=== PATIENT | female | born 1960 | race American Indian/Alaskan Native ===

== ENCOUNTER 2016-10-16 16:11 | Emergency (ER) | payer OTHER ==
[2016-10-16] MEDS ORDERED: Albuterol 0.083% 2.5 MG/3 ML Neb Soln NEB ONE (16:52)
--- NOTE | 2016-10-16 16:59 | EDM.PDOC ---
{null, ED HPI GENERAL MEDICAL PROBLEM - General Chief Complaint: Respiratory Problem Stated Complaint: TIGHTNESS IN CHEST Time Seen by Provider: 10/16/16 16:54 Source of Information: Reports: Patient - History of Present Illness INITIAL COMMENTS - FREE TEXT/NARRATIVE: she comes today with complaints of cough congestion is for the past couple of weeks. She also has had some ear fullness and sinus congestion drainage pressure and headache. She does have a history of allergies which are consistent with all of her symptoms currently. Her cough is dry and hacking and nonproductive. She denies any chest pain palpitations lightheadedness dizziness or weakness. She denies a fever but does complain of chills intermittently. Has not any nausea vomiting abdominal pain hematuria dysuria or urinary frequency. she has tried nothing for her cough congestion or sinus congestion.she denies a sore throat. She denies wheezing. Chest Pain Score (Numeric/FACES): 4 - Related Data Allergies Allergy/AdvReac Type Severity Reaction Status Date / Time Sulfa (Sulfonamide Allergy Rash Verified 07/18/16 00:07 Antibiotics) Home Meds: Home Meds Aspirin [[place] Aspirin] 81 mg PO DAILY 07/29/13 [History] Atenolol 1 tab PO DAILY 07/29/13 [History] Digoxin 0.125 mg PO DAILY 07/29/13 [History] Furosemide [Lasix] 20 mg PO ASDIRECTED PRN 07/29/13 [History] Levothyroxine 150 mcg PO DAILY 07/29/13 [History] Lisinopril 5 mg PO DAILY 07/29/13 [History] Warfarin [Coumadin] 3.75 mg PO DAILY 07/29/13 [History] metFORMIN [metFORMIN XR] 1,000 mg PO BIDM 07/29/13 [History] glyBURIDE [Micronase] 5 mg PO DAILY 10/10/15 [History] Simvastatin [Zocor] 10 mg PO BEDTIME 07/18/16 [History] Past Medical History HEENT History: Reports: Impaired Vision 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 Cardiovascular History: Reports: High Cholesterol, Hypertension Musculoskeletal History: Reports: Other (See Below) Other Musculoskeletal History: pleuracy, chronic foot pain Neurological History: Reports: Neuropathy, Diabetic Endocrine/Metabolic History: Reports: Diabetes, Type II - Infectious Disease History Infectious Disease History: Reports: Chicken Pox, Measles - Past Surgical History Cardiovascular Surgical History: Reports: Pacer, Valve Replacement Social & Family History - Family History Family Medical History: Noncontributory - Tobacco Use Smoking Status *Q: Never Smoker Second Hand Smoke Exposure: No - Caffeine Use Caffeine Use: Reports: Soda, Tea - Alcohol Use Days Per Week of Alcohol Use: 0 - Recreational Drug Use Recreational Drug Use: No ED ROS GENERAL - Review of Systems Review Of Systems: ROS reveals no pertinent complaints other than HPI. ED EXAM, GENERAL - Physical Exam Exam: See Below Exam Limited By: No Limitations General Appearance: Alert, WD/WN, No Apparent Distress Ears: Normal External Exam, Normal Canal, Hearing Grossly Normal, Normal TMs Ear Exam: Bilateral Ear: TM normal Nose: No Blood, Nasal Swelling, Clear Rhinorrhea, Other (mildly erythematous turbinates which are swollen.). No: Nasal Tenderness, Nasal Deformity Throat/Mouth: Normal Lips, Normal Teeth, Normal Gums, Normal Oropharynx, Normal Voice, No Airway Compromise, Other (posterior pharynx with pink salmon colored vesicles and cobblestoning consistent with postnasal drip.) Head: Atraumatic, Normocephalic Neck: Normal Inspection, Supple, Non-Tender, Full Range of Motion Respiratory/Chest: No Respiratory Distress, Lungs Clear, Normal Breath Sounds, No Accessory Muscle Use Cardiovascular: Normal Peripheral Pulses, Regular Rate, Rhythm Peripheral Pulses: 2+: Brachial (L), Brachial (R), Posterior Tibial (L), Posterior Tibial (R), Dorsalis Pedis (L), Dorsalis Pedis (R) GI/Abdominal: Normal Bowel Sounds, Soft, Non-Tender, No Organomegaly, No Distention (Female) Exam: Deferred Rectal (Female) Exam: Deferred Back Exam: Normal Inspection. No: CVA Tenderness (L), CVA Tenderness (R) Extremities: Normal Inspection Neurological: Alert, Oriented, CN II-XII Intact Psychiatric: Normal Affect Skin Exam: Warm, Dry, Intact EKG INTERPRETATION EKG Date: 10/16/16 Time: 16:36 Rhythm: other (1st degree AV Block.) Rate (beats/min): 67 [place]: normal P-wave: present QRS: normal ST-T: normal QT: normal Comparison: no change Course - Vital Signs Last Recorded V/S: Last Vital Signs Temp 35.7 C 10/16/16 18:00 Pulse 73 10/16/16 18:00 Resp 14 10/16/16 18:00 BP 130/44 L 10/16/16 18:00 Pulse Ox 97 10/16/16 18:00 - Orders/Labs/Meds Orders: Active Orders 24 hr Category Date Time Status EKG 12 Lead [EKG Documentation Completion] [RC] URGENT Care 10/16/16 16:45 Active RT Aerosol Therapy [RC] ASDIRECTED Care 10/16/16 16:53 Active Labs: Laboratory Tests 10/16/16 10/16/16 10/16/16 Range/Units 17:04 17:04 17:04 WBC 8.4 (5.0-10.0) 10^3/uL RBC 4.12 L (4.2-5.4) 10^6/uL Hgb 11.0 L (12.0-16.0) g/dL Hct 34.6 L (37.0-47.0) % MCV 84.0 (80-100) fL MCH 26.7 L (27.0-34.0) pg MCHC 31.8 L (33.0-35.0) g/dL Plt Count 231 (150-450) 10^3/uL Neut % (Auto) 53.8 (42.2-75.2) % Lymph % (Auto) 34.5 (20.5-50.1) % [place] % (Auto) 7.6 (2-8) % Eos % (Auto) 3.7 H (1.0-3.0) % Baso % (Auto) 0.4 (0.0-1.0) % Sodium 130 L (135-145) mmol/L Potassium 3.8 (3.6-5.0) mmol/L Chloride 100 L (101-111) mmol/L Carbon Dioxide 24.0 (21.0-31.0) mmol/L Anion Gap 9.8 BUN 18 (7-18) mg/dL Creatinine 0.7 (0.6-1.3) mg/dL Est Cr Clr Drug Dosing 83.01 mL/min Estimated GFR (MDRD) > 60 BUN/Creatinine Ratio 25.71 Glucose 322 H (74-105) mg/dL Calcium 8.5 (8.4-10.2) mg/dl Total Bilirubin 0.3 (0.2-1.0) mg/dL AST 39 (10-42) IU/L ALT 35 (10-60) IU/L Alkaline Phosphatase 111 (42-121) IU/L Troponin I < 0.02 (0.00-0.02) ng/ml B-Natriuretic Peptide 45 (0-100) pg/ml Total Protein 7.9 (6.7-8.2) g/dl Albumin 3.6 (3.2-5.5) g/dl Globulin 4.3 Albumin/Globulin Ratio 0.84 Meds: Medications Discontinued Medications Generic Name Dose Route Start Last Admin Trade Name Freq PRN Reason Stop Dose Admin Albuterol 2.5 mg 10/16/16 16:52 10/16/16 16:57 Proventil Neb Soln NEB 10/16/16 16:53 2.5 mg ONETIME ONE Administration - Radiology Interpretation Free Text/Narrative:: chest x-ray per radiology no acute findings. - Re-Assessments/Exams Free Text/Narrative Re-Assessment/Exam: 10/16/16 17:55 the albuterol nebulizer completely resolves the patient's shortness of breath. I relayed the negative findings of the chest x-ray as well as her laboratory evaluation. Her EKG is unchanged from previous. I think that this is most likely a component of sinus congestion drainage and bronchitis. With her history of cardiac disease I need to ensure that this was not cardiac or pulmonary in nature. I believe that symptomatic management at this time for bronchitis as well as the sinus congestion is most appropriate. Discharge as below were explained to the patient she is comfortable with the plan and her questions were answered. Departure - Departure Time of Disposition: 17:57 Disposition: Home, Self-Care 01 Condition: good Clinical Impression: Bronchitis, Nasal sinus congestion - Discharge Information Instructions: Acute Bronchitis, [id number], Sinusitis, Adult, [id number] Forms: ED Department Discharge Additional Instructions: Tylenol and/or ibuprofen as needed for headache. Albuterol MDI inhaler 2 puffs every 4 hours as needed for cough congestion. Nasal saline rinses twice a day. Netti POT or other [id number] therapies. Flonase 2 sprays to each nares once a day for one week then one spray each nares once a day until symptoms resolve. May try honey as well for cough. Return to emergency Department if new or worsening symptoms. Recheck with your primary care provider in the next 4-6 days if not improving sooner if worse. - My Orders Last 24 Hours: My Active Orders 10/16/16 16:45 EKG 12 Lead [EKG Documentation Completion] [RC] URGENT 10/16/16 16:53 RT Aerosol Therapy [RC] ASDIRECTED - Assessment/Plan Last 24 Hours: My Active Orders 10/16/16 16:45 EKG 12 Lead [EKG Documentation Completion] [RC] URGENT 10/16/16 16:53 RT Aerosol Therapy [RC] ASDIRECTED Assessment:: Acute Bronchitis Nasal Congestion/Sinusitis. Plan: Tylenol and/or ibuprofen as needed for headache. Albuterol MDI inhaler 2 puffs every 4 hours as needed for cough congestion. Nasal saline rinses twice a day. Netti POT or other [id number] therapies. Flonase 2 sprays to each nares once a day for one week then one spray each nares once a day until symptoms resolve. May try honey as well for cough. Return to emergency Department if new or worsening symptoms. Recheck with your primary care provider in the next 4-6 days if not improving sooner if worse }
[2016-10-16 17:31] LABS: CHLORIDE,CL 100 mmol/L (101-111); SODIUM,NA 130 mmol/L (135-145)
[2016-10-16 18:01] VITALS: BP 130/44
--- NOTE | 2016-10-20 11:08 | EKG ---
{null, 10/16/2016 - ROSELINE ZAMORA - 12-lead EKG shows normal sinus rhythm with no significant ST elevation or ST depression noted on this 12-lead EKG. [facility] /[id number] }
== END 2016-10-16 18:09 | disposition home or self-care (01) ==
LOC: DL.ED 16:11
DX: J40 Bronchitis, not specified as acute or chronic (principal); E78.00 Pure hypercholesterolemia, unspecified; E11.9 Type 2 diabetes mellitus without complications; Z88.2 Allergy status to sulfonamides; Z79.82 Long term (current) use of aspirin; Z79.899 Other long term (current) drug therapy; Z79.01 Long term (current) use of anticoagulants
CPT/HCPCS: 36415; 71020; 80053; 83880; 84484; 85025; 93005; 94640; 99285; J7620

== ENCOUNTER 2016-12-27 12:59 | Emergency (ER) | payer OTHER ==
[2016-12-27 13:18] VITALS: BP 95/43
--- NOTE | 2016-12-27 13:36 | EDM.PDOC ---
ED HPI GENERAL MEDICAL PROBLEM - General Chief Complaint: Lower Extremity Injury/Pain Stated Complaint: LEFT LITTLE TOE INJURY Time Seen by Provider: 12/27/16 13:33 Source of Information: Reports: Patient History Limitations: Reports: No Limitations - History of Present Illness INITIAL COMMENTS - FREE TEXT/NARRATIVE: 56 yo [place] Female c/o left toe pain after stubbed on luggage wheel 3 days ago Onset Date: 12/25/16 Onset Time: 17:00 Duration: Day(s): Location: Reports: Lower Extremity, Left Quality: Reports: Ache Severity: Moderate Improves with: Reports: Rest Worsens with: Reports: Movement Associated Symptoms: Reports: No Other Symptoms Left Feet Pain Score (Numeric/FACES): 8 - Related Data Allergies Allergy/AdvReac Type Severity Reaction Status Date / Time Sulfa (Sulfonamide Allergy Rash Verified 12/27/16 13:20 Antibiotics) Home Meds: Home Meds Aspirin [[place] Aspirin] 81 mg PO DAILY 07/29/13 [History] Atenolol 0.5 tab PO DAILY 07/29/13 [History] Digoxin 0.125 mg PO DAILY 07/29/13 [History] Furosemide [Lasix] 20 mg PO ASDIRECTED PRN 07/29/13 [History] Levothyroxine 150 mcg PO DAILY 07/29/13 [History] Lisinopril 5 mg PO DAILY 07/29/13 [History] Warfarin [Coumadin] 4 mg PO DAILY 07/29/13 [History] metFORMIN [metFORMIN XR] 1,000 mg PO BIDM 07/29/13 [History] glyBURIDE [Micronase] 5 mg PO DAILY 10/10/15 [History] Past Medical History HEENT History: Reports: Impaired Vision 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, wears glasses Cardiovascular History: Reports: High Cholesterol, Hypertension Respiratory History: Reports: None Gastrointestinal History: Reports: None Genitourinary History: Reports: None [employer] History: Reports: None Musculoskeletal History: Reports: Other (See Below) Other Musculoskeletal History: pleuracy, chronic foot pain Neurological History: Reports: Neuropathy, Diabetic Psychiatric History: Reports: None Endocrine/Metabolic History: Reports: Diabetes, Type II Hematologic History: Reports: None Immunologic History: Reports: None Oncologic (Cancer) History: Reports: None Dermatologic History: Reports: None - Infectious Disease History Infectious Disease History: Reports: Chicken Pox, Measles - Past Surgical History Cardiovascular Surgical History: Reports: Pacer, Valve Replacement Social & Family History - Family History Family Medical History: Noncontributory - Tobacco Use Smoking Status *Q: Never Smoker Second Hand Smoke Exposure: No - Caffeine Use Caffeine Use: Reports: Tea - Alcohol Use Days Per Week of Alcohol Use: 0 - Recreational Drug Use Recreational Drug Use: No Review of Systems - Review of Systems Review Of Systems: See Below Constitutional: Reports: No Symptoms Eyes: Reports: No Symptoms Ears: Reports: No Symptoms Nose: Reports: No Symptoms Mouth/Throat: Reports: No Symptoms Respiratory: Reports: No Symptoms Cardiovascular: Reports: No Symptoms GI/Abdominal: Reports: No Symptoms Genitourinary: Reports: No Symptoms Musculoskeletal: Reports: Foot Pain (toes) Skin: Reports: Bruising (left foot) Neurological: Reports: No Symptoms Psychiatric: Reports: No Symptoms ED EXAM, GENERAL - Physical Exam Exam: See Below Exam Limited By: No Limitations General Appearance: Alert, WD/WN, No Apparent Distress Eye Exam: Bilateral Eye: PERRL Ears: Normal External Exam Nose: Normal Inspection Throat/Mouth: Normal Inspection Head: Atraumatic Neck: Normal Inspection Respiratory/Chest: No Respiratory Distress Cardiovascular: Normal Peripheral Pulses GI/Abdominal: Normal Bowel Sounds Extremities: Other (left toes w/ some bruising and tenderness) Neurological: Alert, Oriented, CN II-XII Intact Psychiatric: Normal Affect Skin Exam: Warm, Other (bruising to left toes) Course - Vital Signs Last Recorded V/S: Last Vital Signs Temp 36.1 C 12/27/16 13:15 Pulse 71 12/27/16 13:15 Resp 16 12/27/16 13:15 BP 95/43 L 12/27/16 13:15 Pulse Ox 98 12/27/16 13:15 Departure - Departure Time of Disposition: 14:30 Disposition: Home, Self-Care 01 Condition: Good Clinical Impression: Contusion of left foot including toes Qualifiers: Encounter type: initial encounter Qualified Code(s): S90.32XA - Contusion of left foot, initial encounter; S90.122A - Contusion of left lesser toe(s) without damage to nail, initial encounter - Discharge Information Forms: ED Department Discharge Additional Instructions: Rest Elevate and apply ice pack For pain take Tylenol Extra Strength 500mg Q4hrs as needed F/U w/ PCP
== END 2016-12-27 15:10 | disposition home or self-care (01) ==
LOC: DL.ED 12:59
DX: S90.32XA Contusion of left foot, initial encounter (principal); S90.122A Contusion of left lesser toe(s) without damage to nail, initial encounter; I10 Essential (primary) hypertension; E78.00 Pure hypercholesterolemia, unspecified; E11.40 Type 2 diabetes mellitus with diabetic neuropathy, unspecified; Z79.82 Long term (current) use of aspirin; Z79.01 Long term (current) use of anticoagulants; Z79.899 Other long term (current) drug therapy; Z88.2 Allergy status to sulfonamides; Z95.0 Presence of cardiac pacemaker; Z95.2 Presence of prosthetic heart valve; W22.8XXA Striking against or struck by other objects, initial encounter
CPT/HCPCS: 73620-LT; 99284

== ENCOUNTER 2017-04-19 16:23 | Emergency (ER) | payer OTHER ==
[2017-04-19 17:36] VITALS: BP 116/59
--- NOTE | 2017-04-19 17:46 | EDM.PDOC ---
ED HPI GENERAL MEDICAL PROBLEM - General Chief Complaint: Cardiovascular Problem Stated Complaint: BY AMBULANCE Time Seen by Provider: 04/19/17 17:35 Source of Information: Reports: Patient, EMS History Limitations: Reports: No Limitations - History of Present Illness INITIAL COMMENTS - FREE TEXT/NARRATIVE: This 56 yo female patient reports to the ED due to an episode of dizziness that occurred at about 1500 today. The patient reports she was sitting at her desk when she started to feel a little lightheaded. The patient reports she has also been feeling dizzy. The patient reports she has been dealing with a left ear infection and was started on Amoxicillin last Wednesday. The patient reports she has also had a sore throat over the past week. 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 The patient reports she had went up to the [facility] for a check-up, but there were no providers available to see her at that time. The [facility] called the ambulance to transport the patient to the ED. Onset: Today, Sudden Onset Date: 04/19/17 Onset Time: 15:00 Duration: Resolved Prior to Arrival Quality: Reports: Dull Severity: Mild Improves with: Reports: None Worsens with: Reports: None Associated Symptoms: Reports: Other - Related Data Allergies Allergy/AdvReac Type Severity Reaction Status Date / Time Sulfa (Sulfonamide Allergy Rash Verified 12/27/16 13:20 Antibiotics) Home Meds: Home Meds Aspirin [[place] Aspirin] 81 mg PO DAILY 07/29/13 [History] Atenolol 0.5 tab PO DAILY 07/29/13 [History] Digoxin 0.125 mg PO DAILY 07/29/13 [History] Furosemide [Lasix] 20 mg PO ASDIRECTED PRN 07/29/13 [History] Levothyroxine 150 mcg PO DAILY 07/29/13 [History] Lisinopril 5 mg PO DAILY 07/29/13 [History] Warfarin [Coumadin] 4 mg PO DAILY 07/29/13 [History] metFORMIN [metFORMIN XR] 1,000 mg PO BIDM 07/29/13 [History] glyBURIDE [Micronase] 5 mg PO DAILY 10/10/15 [History] Past Medical History HEENT History: Reports: Impaired Vision 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, wears glasses Cardiovascular History: Reports: High Cholesterol, Hypertension Respiratory History: Reports: None Gastrointestinal History: Reports: GERD Genitourinary History: Reports: None [employer] History: Reports: None Musculoskeletal History: Reports: Other (See Below) Other Musculoskeletal History: pleuracy, chronic foot pain Neurological History: Reports: Neuropathy, Diabetic Psychiatric History: Reports: None Endocrine/Metabolic History: Reports: Diabetes, Type II, Hypothyroidism Hematologic History: Reports: None Immunologic History: Reports: None Oncologic (Cancer) History: Reports: None Dermatologic History: Reports: None - Infectious Disease History Infectious Disease History: Reports: Chicken Pox, Measles - Past Surgical History Cardiovascular Surgical History: Reports: Pacer, Valve Replacement Social & Family History - Family History Family Medical History: Noncontributory - Tobacco Use Smoking Status *Q: Never Smoker Second Hand Smoke Exposure: No - Caffeine Use Caffeine Use: Reports: Coffee, Tea - Alcohol Use Days Per Week of Alcohol Use: 0 - Recreational Drug Use Recreational Drug Use: No ED ROS GENERAL - Review of Systems Review Of Systems: ROS reveals no pertinent complaints other than HPI. ED EXAM, GENERAL - Physical Exam Exam: See Below Exam Limited By: No Limitations General Appearance: Alert, WD/WN, Mild Distress Eye Exam: Bilateral Eye: EOMI, Normal Inspection, PERRL Ears: Normal External Exam, Normal Canal, Hearing Grossly Normal, Other (slight buldging of the right TM) Nose: Normal Inspection, Normal Mucosa, No Blood Throat/Mouth: Normal Inspection, Normal Lips, Normal Teeth, Normal Gums, Normal Oropharynx, Normal Voice, No Airway Compromise Head: Atraumatic, Normocephalic Neck: Normal Inspection, Supple, Non-Tender, Full Range of Motion Respiratory/Chest: No Respiratory Distress, Lungs Clear, Normal Breath Sounds, No Accessory Muscle Use, Chest Non-Tender Cardiovascular: Normal Peripheral Pulses, Regular Rate, Rhythm, No Edema, No Gallop, No JVD, No Murmur, No Rub GI/Abdominal: Normal Bowel Sounds, Soft, Non-Tender, No Organomegaly, No Distention, No Abnormal Bruit, No Mass (Female) Exam: Deferred Rectal (Female) Exam: Deferred Back Exam: Normal Inspection, Full Range of Motion, NT Extremities: Normal Inspection, Normal Range of Motion, Non-Tender, Normal Capillary Refill, No Pedal Edema Neurological: Alert, Oriented, CN II-XII Intact, Normal Cognition, Normal Gait, Normal Reflexes, No Motor/Sensory Deficits Psychiatric: Normal Affect, Normal Mood Skin Exam: Warm, Dry, Intact, Normal Color, No Rash Lymphatic: No Adenopathy Course - Vital Signs Last Recorded V/S: Last Vital Signs Temp 36.3 C 04/19/17 17:34 Pulse 62 04/19/17 17:34 Resp 16 04/19/17 17:34 BP 116/59 L 04/19/17 17:34 Pulse Ox 98 04/19/17 17:34 - Orders/Labs/Meds Orders: Active Orders 24 hr Category Date Time Status EKG Documentation Completion [RC] URGENT Care 04/19/17 17:12 Active Labs: Laboratory Tests 04/19/17 04/19/17 04/19/17 Range/Units 17:25 17:34 17:34 WBC 8.5 (5.0-10.0) 10^3/uL RBC 4.21 (4.2-5.4) 10^6/uL Hgb 11.1 L (12.0-16.0) g/dL Hct 34.8 L (37.0-47.0) % MCV 82.7 (80-100) fL MCH 26.4 L (27.0-34.0) pg MCHC 31.9 L (33.0-35.0) g/dL Plt Count 278 (150-450) 10^3/uL Neut % (Auto) 57.6 (42.2-75.2) % Lymph % (Auto) 32.2 (20.5-50.1) % [place] % (Auto) 7.5 (2-8) % Eos % (Auto) 2.1 (1.0-3.0) % Baso % (Auto) 0.6 (0.0-1.0) % Sodium 135 (135-145) mmol/L Potassium 3.9 (3.6-5.0) mmol/L Chloride 101 (101-111) mmol/L Carbon Dioxide 24.0 (21.0-31.0) mmol/L Anion Gap 13.9 BUN 16 (7-18) mg/dL Creatinine 0.7 (0.6-1.3) mg/dL Est Cr Clr Drug Dosing 83.01 mL/min Estimated GFR (MDRD) > 60 BUN/Creatinine Ratio 22.85 Glucose 285 H (74-105) mg/dL Calcium 8.7 (8.4-10.2) mg/dl Total Bilirubin 0.3 (0.2-1.0) mg/dL AST 46 H (10-42) IU/L ALT 37 (10-60) IU/L Alkaline Phosphatase 97 (42-121) IU/L Troponin I < 0.02 (0.00-0.02) ng/ml Total Protein 7.8 (6.7-8.2) g/dl Albumin 3.7 (3.2-5.5) g/dl Globulin 4.1 Albumin/Globulin Ratio 0.90 Urine Color Yellow (YELLOW) Urine Appearance Clear (CLEAR) Urine pH 6.5 (5.0-9.0) Ur Specific [place] 1.015 (1.005-1.030) Urine Protein Negative (NEGATIVE) Urine Glucose (UA) 500 H (NEGATIVE) Urine Ketones Negative (NEGATIVE) Urine Occult Blood Negative (NEGATIVE) Urine Nitrite Negative (NEGATIVE) Urine Bilirubin Negative (NEGATIVE) Urine Urobilinogen 1.0 (0.2-1.0) mg/dL Ur Leukocyte Esterase Negative (NEGATIVE) Urine RBC 0-5 /HPF Urine WBC Not seen (0-5/HPF) /HPF Ur Epithelial Cells Rare /HPF Urine Bacteria Rare (0-FEW/HPF) /HPF Departure - Departure Time of Disposition: 18:16 Disposition: Home, Self-Care 01 Condition: Fair Clinical Impression: Vertigo of central origin of left ear, Near syncope Instructions: Vertigo, [id number], Meniere Disease, Dizziness, Bjij-[id number], Near-Syncope, Mprh-ek-Juql Forms: ED Department Discharge Care Plan Goals: The patient was advised of the examination, lab and x-ray results during the visit. The patient was encouraged to continue to take the Amoxicillin as prescribed. The patient was given a script for Meclizine (25 mg) #10 to take 1 by mouth every 8 hours as needed for dizziness. If the patient has any additional symptoms or concerns, the patient should follow-up with her primary care facility or return to the emergency department. - My Orders Last 24 Hours: My Active Orders 04/19/17 17:12 EKG Documentation Completion [RC] URGENT - Assessment/Plan Last 24 Hours: My Active Orders 04/19/17 17:12 EKG Documentation Completion [RC] URGENT
[2017-04-19 18:07] LABS: CHLORIDE,CL 101 mmol/L (101-111); SODIUM,NA 135 mmol/L (135-145)
--- NOTE | 2017-04-21 10:21 | EKG ---
04/19/2017- ROSELINE ZAMORA - EKG per my reading shows atrial fibrillation with controlled ventricular rate. [facility] /[id number]
== END 2017-04-19 18:40 | disposition home or self-care (01) ==
LOC: DL.ED 16:23
DX: H81.42 Vertigo of central origin, left ear (principal); R55 Syncope and collapse; I10 Essential (primary) hypertension; E78.00 Pure hypercholesterolemia, unspecified; E11.40 Type 2 diabetes mellitus with diabetic neuropathy, unspecified; E03.9 Hypothyroidism, unspecified; Z79.82 Long term (current) use of aspirin; Z79.84 Long term (current) use of oral hypoglycemic drugs; Z79.01 Long term (current) use of anticoagulants; Z79.899 Other long term (current) drug therapy; Z88.2 Allergy status to sulfonamides
CPT/HCPCS: 36415; 71010; 80053; 81001; 84484; 85025; 93005; 99285

== ENCOUNTER 2017-07-17 11:15 | Emergency (ER) | payer OTHER ==
[2017-07-17 11:27] VITALS: BP 121/50
--- NOTE | 2017-07-17 12:35 | EDM.PDOC ---
ED HPI GENERAL MEDICAL PROBLEM - General Chief Complaint: ENT Problem Stated Complaint: [id number] SINUS INFECTION EAR INFECTION Time Seen by Provider: 07/17/17 12:29 Source of Information: Reports: Patient History Limitations: Reports: No Limitations - History of Present Illness INITIAL COMMENTS - FREE TEXT/NARRATIVE: Patient complains of progressively worsening cough and sinus pressure. Patient was advised by her clinic to be seen in the emergency room. Patient complains of fever or chills fatigue and harsh cough. She has right- sided sinus pressure and ear pain. Denies difficulty with swallowing. She has fatigue with exertion. No chest tightness. No extremity weakness. Onset: Gradual Duration: Day(s): Location: Reports: Face, Chest Quality: Reports: Dull Severity: Moderate Associated Symptoms: Reports: Cough, Fever/Chills, Malaise, Weakness. Denies: Nausea/Vomiting, Rash Face Pain Score (Numeric/FACES): 6 - Related Data Allergies Allergy/AdvReac Type Severity Reaction Status Date / Time Sulfa (Sulfonamide Allergy Rash Verified 07/17/17 11:27 Antibiotics) Home Meds: Home Meds Aspirin [[place] Aspirin] 81 mg PO DAILY 07/29/13 [History] Atenolol 0.5 tab PO DAILY 07/29/13 [History] Digoxin 0.125 mg PO DAILY 07/29/13 [History] Furosemide [Lasix] 20 mg PO ASDIRECTED PRN 07/29/13 [History] Levothyroxine 150 mcg PO DAILY 07/29/13 [History] Warfarin [Coumadin] 4 mg PO DAILY 07/29/13 [History] metFORMIN [metFORMIN XR] 1,000 mg PO BIDM 07/29/13 [History] glyBURIDE [Micronase] 5 mg PO BID 10/10/15 [History] Acetaminophen [Tylenol] 975 mg PO ASDIRECTED PRN 07/17/17 [History] Past Medical History HEENT History: Reports: Impaired Vision 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, wears glasses Cardiovascular History: Reports: High Cholesterol, Hypertension Respiratory History: Reports: None Gastrointestinal History: Reports: GERD Genitourinary History: Reports: None PROGRAM LEAD History: Reports: None Musculoskeletal History: Reports: Other (See Below) Other Musculoskeletal History: pleuracy, chronic foot pain Neurological History: Reports: Neuropathy, Diabetic Psychiatric History: Reports: None Endocrine/Metabolic History: Reports: Diabetes, Type II, Hypothyroidism Hematologic History: Reports: None Immunologic History: Reports: None Oncologic (Cancer) History: Reports: None Dermatologic History: Reports: None - Infectious Disease History Infectious Disease History: Reports: Chicken Pox, Measles - Past Surgical History Cardiovascular Surgical History: Reports: Pacer, Valve Replacement Social & Family History - Family History Family Medical History: Noncontributory - Tobacco Use Smoking Status *Q: Never Smoker Second Hand Smoke Exposure: No - Caffeine Use Caffeine Use: Reports: Tea - Alcohol Use Days Per Week of Alcohol Use: 0 - Recreational Drug Use Recreational Drug Use: No ED ROS ENT - Review of Systems Review Of Systems: See Below Constitutional: Reports: Fever, Chills, Malaise HEENT: Reports: Ear Pain, Sinus Problem Respiratory: Reports: Cough Cardiovascular: Reports: No Symptoms GI/Abdominal: Reports: No Symptoms : Reports: No Symptoms Musculoskeletal: Reports: No Symptoms Neurological: Reports: No Symptoms ED EXAM, ENT - Physical Exam Exam: See Below Exam Limited By: No Limitations General Appearance: Alert, Mild Distress Eye Exam: Bilateral Eye: PERRL Ears: Normal External Exam, Normal TMs Nose: Other (Tenderness to palpation over the right frontal and maxillary sinuses). No: Nasal Discharge, Nasal Tenderness Mouth/Throat: Normal Inspection, Normal Lips Head: Atraumatic, Normocephalic Neck: Normal Inspection, Supple, Non-Tender Respiratory/Chest: Rhonchi. No: Crackles, Wheezing Cardiovascular: Regular Rate, Rhythm Extremities: Normal Capillary Refill Neurological: Alert, Oriented, CN II-XII Intact Skin: Warm, Dry Course - Vital Signs Last Recorded V/S: Last Vital Signs Temp 96.8 F 07/17/17 11:21 Pulse 68 07/17/17 11:21 Resp 16 07/17/17 11:21 BP 121/50 L 07/17/17 11:21 Pulse Ox 98 07/17/17 11:21 - Orders/Labs/Meds Labs: Laboratory Tests 07/17/17 Range/Units 12:45 WBC 4.4 L (5.0-10.0) 10^3/uL RBC 3.96 L (4.2-5.4) 10^6/uL Hgb 10.4 L (12.0-16.0) g/dL Hct 32.7 L (37.0-47.0) % MCV 82.6 (80-100) fL MCH 26.3 L (27.0-34.0) pg MCHC 31.8 L (33.0-35.0) g/dL Plt Count 212 (150-450) 10^3/uL Neut % (Auto) 46.5 (42.2-75.2) % Lymph % (Auto) 31.3 (20.5-50.1) % [place] % (Auto) 13.8 H (2-8) % Eos % (Auto) 7.7 H (1.0-3.0) % Baso % (Auto) 0.7 (0.0-1.0) % Meds: Medications Discontinued Medications Generic Name Dose Route Start Last Admin Trade Name Freq PRN Reason Stop Dose Admin Amoxicillin/Clavulanate Potassium 1 tab 07/17/17 12:38 07/17/17 12:45 Augmentin 875 Mg/125 Mg PO 07/17/17 12:39 1 tab ONETIME ONE Administration Dexamethasone 4 mg 07/17/17 12:38 07/17/17 12:45 Dexamethasone IM 07/17/17 12:39 4 mg ONETIME ONE Administration - Re-Assessments/Exams Free Text/Narrative Re-Assessment/Exam: Chest x-ray is clear. Unable to determine influenza since hospital is out of influenza kits 07/17/17 13:26 Departure - Departure Time of Disposition: 13:27 Disposition: Home, Self-Care 01 Condition: Good Clinical Impression: Sinobronchitis - Discharge Information Instructions: Sinusitis, Adult, [id number], Acute Bronchitis, Adult, Easy-to- Read Forms: ED Department Discharge Additional Instructions: Take medications as directed. Follow-up with regular provider next week. No work until Wednesday. Call or return if any problems questions or concerns. May use honey and lemon juice for cough syrup. Can use [id number] medications such as Tylenol.
[2017-07-17] MEDS ORDERED: Amoxicillin/Clavulanate K 875-125 MG Tab PO ONE (12:38)
[2017-07-17] MEDS ORDERED: Dexamethasone 4 MG/ML SDV IM ONE (12:38)
--- NOTE | 2017-07-17 13:11 | CR ---
Clinical history: 57-year-old female with cough. Interpretation: Chronic mild cardiomegaly this patient with sternotomy wires, cardiac valve prosthesis and cardiac pa cemaker (leads intact). Chronic shaggy bronchitic pattern unchanged except for technique since AP film of 19 April 2017. No new signs of alveolar edema, dependent pleural effusion, lung mass, focal lobar pneumonia or atele ctasis/collapse. No pneumothorax or free subdiaphragmatic air. CONCLUSION: Evidence of heart surgery. No acute new cardiopulmonary abnormality since March 7.
== END 2017-07-17 13:48 | disposition home or self-care (01) ==
LOC: DL.ED 11:15
DX: J40 Bronchitis, not specified as acute or chronic (principal); I10 Essential (primary) hypertension; E78.00 Pure hypercholesterolemia, unspecified; E11.40 Type 2 diabetes mellitus with diabetic neuropathy, unspecified; E03.9 Hypothyroidism, unspecified; Z95.2 Presence of prosthetic heart valve; Z79.82 Long term (current) use of aspirin; Z79.01 Long term (current) use of anticoagulants; Z79.84 Long term (current) use of oral hypoglycemic drugs; Z79.899 Other long term (current) drug therapy; Z88.2 Allergy status to sulfonamides
CPT/HCPCS: 36415; 71046; 85025; 96372; 99284; A9270; J1100

== ENCOUNTER 2018-06-27 15:52 | Emergency (ER) | payer BC, OTHER ==
[2018-06-27 15:52] VITALS: BP 120/61
--- NOTE | 2018-06-27 15:55 | EDM.PDOC ---
ED HPI GENERAL MEDICAL PROBLEM - General Stated Complaint: AMBULANCE Time Seen by Provider: 06/27/18 15:46 Source of Information: Reports: Patient, EMS, Provider History Limitations: Reports: No Limitations - History of Present Illness INITIAL COMMENTS - FREE TEXT/NARRATIVE: This 58 yo female patient was brought to the ED by TAYLOR from the [facility] due to a 2 day history of intermittent chest pain and shortness of breath. This patient has a pacemaker in place and an artificial mitral valve. The patient did have her pacemaker replaced this past fall (according to Dr. Daniels). The patient was given a dose of aspirin while in the [facility] and had an IV in place upon arrival in the ED. The patient reports her chest pain has been mostly on the left side of her chest with some pain in the middle of her chest. The patient reports she had her pacemaker replaced in February with only 1 follow-up in the end of February. The patient reports she was supposed to have her pacemaker checked with something on her phone this month, but her grandchildren were playing with her phone and she can not find the thing they put on her phone. The patient reports she was going to call her monument carver regarding the check soon. The patient reports she also saw a doctor in [place] for pain in her lower back last week, but the provider did not get a copy of the patient's MRI. The provider reported to the patient that he could not do much without the MRI results. The patient reports she has been having low back pain from that with pain radiating around from her back into her stomach. 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 - Related Data Allergies Allergy/AdvReac Type Severity Reaction Status Date / Time Sulfa (Sulfonamide Allergy Rash Verified 07/17/17 11:27 Antibiotics) Home Meds: Home Meds Aspirin [[place] Aspirin] 81 mg PO DAILY 07/29/13 [History] Atenolol 0.5 tab PO DAILY 07/29/13 [History] Digoxin 0.125 mg PO DAILY 07/29/13 [History] Levothyroxine 150 mcg PO DAILY 07/29/13 [History] Warfarin [Coumadin] 4 mg PO DAILY 07/29/13 [History] metFORMIN [metFORMIN XR] 1,000 mg PO BIDM 07/29/13 [History] glyBURIDE [Micronase] 5 mg PO BID 10/10/15 [History] Acetaminophen [Tylenol] 975 mg PO ASDIRECTED PRN 07/17/17 [History] Past Medical History HEENT History: Reports: Impaired Vision 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, wears glasses Cardiovascular History: Reports: Heart Valve Replacement (aortic), High Cholesterol, Hypertension, Pacemaker Respiratory History: Reports: Sleep Apnea (CPAP) Gastrointestinal History: Reports: GERD Genitourinary History: Reports: None PLATER 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 BOARD PANELS History: Reports: None Musculoskeletal History: Reports: Other (See Below) Other Musculoskeletal History: chronic foot pain Neurological History: Reports: Neuropathy, Diabetic Psychiatric History: Reports: None Endocrine/Metabolic History: Reports: Diabetes, Type II, Hypothyroidism, Obesity /BMI 30+ Hematologic History: Reports: None Immunologic History: Reports: None Oncologic (Cancer) History: Reports: None Dermatologic History: Reports: None - Infectious Disease History Infectious Disease History: Reports: Chicken Pox, Measles - Past Surgical History Cardiovascular Surgical History: Reports: Pacer, Valve Replacement Social & Family History - Family History Family Medical History: Noncontributory - Caffeine Use Caffeine Use: Reports: Tea - Living Situation & Occupation Living situation: Reports: with Family Occupation: Employed ED ROS GENERAL - Review of Systems Review Of Systems: ROS reveals no pertinent complaints other than HPI. ED EXAM, GENERAL - Physical Exam Exam: See Below Exam Limited By: No Limitations General Appearance: Alert, WD/WN, No Apparent Distress Eye Exam: Bilateral Eye: EOMI, Normal Inspection, PERRL Ears: Normal External Exam, Normal Canal, Hearing Grossly Normal, Normal TMs Nose: Normal Inspection, Normal Mucosa, No Blood Throat/Mouth: Normal Inspection, Normal Lips, Normal Teeth, Normal Gums, Normal Oropharynx, Normal Voice, No Airway Compromise Head: Atraumatic, Normocephalic Neck: Normal Inspection, Supple, Non-Tender, Full Range of Motion Respiratory/Chest: No Respiratory Distress, Lungs Clear, Normal Breath Sounds, No Accessory Muscle Use, Chest Non-Tender Cardiovascular: Normal Peripheral Pulses, Regular Rate, Rhythm, No Gallop, No JVD, No Murmur, No Rub, Other (Mechanical click) GI/Abdominal: Normal Bowel Sounds, Soft, Non-Tender, No Organomegaly, No Distention, No Abnormal Bruit, No Mass (Female) Exam: Deferred Rectal (Female) Exam: Deferred Back Exam: Normal Inspection, Full Range of Motion, NT Extremities: Normal Inspection, Normal Range of Motion, Non-Tender, Normal Capillary Refill, Pedal Edema Neurological: Alert, Oriented, CN II-XII Intact, Normal Cognition, Normal Gait, Normal Reflexes, No Motor/Sensory Deficits Psychiatric: Normal Affect, Normal Mood Skin Exam: Warm, Dry, Intact, Normal Color, No Rash Lymphatic: No Adenopathy Course - Vital Signs Last Recorded V/S: Last Vital Signs Temp 36.9 C 06/27/18 15:47 Pulse 65 06/27/18 15:47 Resp 18 06/27/18 15:47 BP 120/61 06/27/18 15:47 Pulse Ox 98 06/27/18 15:47 - Orders/Labs/Meds Orders: Active Orders 24 hr Category Date Time Status EKG Documentation Completion [RC] URGENT Care 06/27/18 15:45 Active Chest 1V Frontal [CR] Urgent Exams 06/27/18 15:45 Taken Labs: Laboratory Tests 06/27/18 06/27/18 06/27/18 Range/Units 15:56 15:56 15:56 WBC 6.6 (5.0-10.0) 10^3/uL RBC 3.81 L (4.2-5.4) 10^6/uL Hgb 10.4 L (12.0-16.0) g/dL Hct 33.1 L (37.0-47.0) % MCV 86.9 (80-100) fL MCH 27.3 (27.0-34.0) pg MCHC 31.4 L (33.0-35.0) g/dL Plt Count 205 (150-450) 10^3/uL Neut % (Auto) 60.5 (42.2-75.2) % Lymph % (Auto) 30.7 (20.5-50.1) % [place] % (Auto) 5.8 (2-8) % Eos % (Auto) 2.7 (1.0-3.0) % Baso % (Auto) 0.3 (0.0-1.0) % PT 28.4 H (9.0-12.0) SEC INR 2.9 H (0.9-1.2) D-Dimer, Quantitative < 100 (0-400) ng/mL Sodium (135-145) mmol/L Potassium (3.6-5.0) mmol/L Chloride (101-111) mmol/L Carbon Dioxide (21.0-31.0) mmol/L Anion Gap BUN (7-18) mg/dL Creatinine (0.6-1.3) mg/dL Est Cr Clr Drug Dosing mL/min Estimated GFR (MDRD) BUN/Creatinine Ratio Glucose (74-105) mg/dL Calcium (8.4-10.2) mg/dl Total Bilirubin (0.2-1.0) mg/dL AST (10-42) IU/L ALT (10-60) IU/L Alkaline Phosphatase (42-121) IU/L Troponin I (0.00-0.02) ng/ml B-Natriuretic Peptide 41 (0-100) pg/ml Total Protein (6.7-8.2) g/dl Albumin (3.2-5.5) g/dl Globulin Albumin/Globulin Ratio 06/27/ Range/Units 15:56 WBC (5.0-10.0) 10^3/uL RBC (4.2-5.4) 10^6/uL Hgb (12.0-16.0) g/dL Hct (37.0-47.0) % MCV (80-100) fL MCH (27.0-34.0) pg MCHC (33.0-35.0) g/dL Plt Count (150-450) 10^3/uL Neut % (Auto) (42.2-75.2) % Lymph % (Auto) (20.5-50.1) % [place] % (Auto) (2-8) % Eos % (Auto) (1.0-3.0) % Baso % (Auto) (0.0-1.0) % PT (9.0-12.0) SEC INR (0.9-1.2) D-Dimer, Quantitative (0-400) ng/mL Sodium 137 (135-145) mmol/L Potassium 3.9 (3.6-5.0) mmol/L Chloride 102 (101-111) mmol/L Carbon Dioxide 26.0 (21.0-31.0) mmol/L Anion Gap 12.9 BUN 15 (7-18) mg/dL Creatinine 0.6 (0.6-1.3) mg/dL Est Cr Clr Drug Dosing 98.18 mL/min Estimated GFR (MDRD) > 60 BUN/Creatinine Ratio 25.00 Glucose 169 H (74-105) mg/dL Calcium 8.8 (8.4-10.2) mg/dl Total Bilirubin 0.5 (0.2-1.0) mg/dL AST 31 (10-42) IU/L ALT 21 (10-60) IU/L Alkaline Phosphatase 93 (42-121) IU/L Troponin I < 0.02 (0.00-0.02) ng/ml B-Natriuretic Peptide (0-100) pg/ml Total Protein 8.0 (6.7-8.2) g/dl Albumin 3.5 (3.2-5.5) g/dl Globulin 4.5 Albumin/Globulin Ratio 0.78 Departure - Departure Time of Disposition: 16:32 Disposition: Home, Self-Care 01 Condition: Fair Clinical Impression: Nonspecific chest pain Instructions: Nonspecific Chest Pain, [id number] Forms: ED Department Discharge Care Plan Goals: The patient was advised of the examination, lab, EKG and x-ray results during the visit. The patient was encouraged to follow-up with her monument carver for continued evaluation and further management. If the patient has any additional symptoms or concerns, the patient should either return to the emergency department or visit her primary care facility. - My Orders Last 24 Hours: My Active Orders 06/27/18 15:45 EKG Documentation Completion [RC] URGENT Chest 1V Frontal [CR] Urgent - Assessment/Plan Last 24 Hours: My Active Orders 06/27/18 15:45 EKG Documentation Completion [RC] URGENT Chest 1V Frontal [CR] Urgent
[2018-06-27 16:23] LABS: ANION GAP 12.9; CHLORIDE,CL 102 mmol/L (101-111); SODIUM,NA 137 mmol/L (135-145)
== END 2018-06-27 17:08 | disposition home or self-care (01) ==
LOC: DL.ED 15:52
DX: R07.9 Chest pain, unspecified (principal); E66.9 Obesity, unspecified; E11.40 Type 2 diabetes mellitus with diabetic neuropathy, unspecified; Z88.2 Allergy status to sulfonamides; Z79.82 Long term (current) use of aspirin; Z79.899 Other long term (current) drug therapy
CPT/HCPCS: 36415; 71045; 80053; 83880; 84484; 85025; 85379; 85610; 93005; 99285

== ENCOUNTER 2018-10-14 23:17 | Emergency (ER) | payer BC, OTHER ==
[2018-10-14 23:25] VITALS: BP 110/86
--- NOTE | 2018-10-14 23:42 | EDM.PDOC ---
ED HPI GENERAL MEDICAL PROBLEM - General Chief Complaint: Chest Pain Stated Complaint: CHEST HURTS [id number] Time Seen by Provider: 10/14/18 23:40 Source of Information: Reports: Patient History Limitations: Reports: No Limitations - History of Present Illness INITIAL COMMENTS - FREE TEXT/NARRATIVE: c/o CP on off few days, not getting better has appt with cardio, tonight felt worse after returning from [place]. presently feeling ok but tired. Left Anterior Chest Pain Score (Numeric/FACES): 2 - Related Data Allergies Allergy/AdvReac Type Severity Reaction Status Date / Time Sulfa (Sulfonamide Allergy Rash Verified 10/14/18 23:25 Antibiotics) Home Meds: Home Meds Aspirin [[place] Aspirin] 81 mg PO DAILY 07/29/13 [History] Atenolol 0.5 tab PO DAILY 07/29/13 [History] Digoxin 0.125 mg PO DAILY 07/29/13 [History] Levothyroxine 150 mcg PO DAILY 07/29/13 [History] Warfarin [Coumadin] 4 mg PO DAILY 07/29/13 [History] metFORMIN [metFORMIN XR] 1,000 mg PO BIDM 07/29/13 [History] glyBURIDE [Micronase] 5 mg PO BID 10/10/15 [History] Acetaminophen [Tylenol] 975 mg PO ASDIRECTED PRN 07/17/17 [History] Past Medical History HEENT History: Reports: Impaired Vision 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, wears glasses Cardiovascular History: Reports: Heart Valve Replacement, High Cholesterol, Hypertension, Pacemaker Respiratory History: Reports: Sleep Apnea Gastrointestinal History: Reports: GERD Genitourinary History: Reports: None KENNEL HAND History: Reports: None Musculoskeletal History: Reports: Other (See Below) Other Musculoskeletal History: chronic foot pain Neurological History: Reports: Neuropathy, Diabetic Psychiatric History: Reports: None Endocrine/Metabolic History: Reports: Diabetes, Type II, Hypothyroidism, Obesity /BMI 30+ Hematologic History: Reports: None Immunologic History: Reports: None Oncologic (Cancer) History: Reports: None Dermatologic History: Reports: None - Infectious Disease History Infectious Disease History: Reports: Chicken Pox, Measles - Past Surgical History Cardiovascular Surgical History: Reports: Pacer, Valve Replacement Social & Family History - Family History Family Medical History: Noncontributory - Tobacco Use Smoking Status *Q: Unknown Ever Smoked - Caffeine Use Caffeine Use: Reports: None - Recreational Drug Use Recreational Drug Use: No - Living Situation & Occupation Living situation: Reports: with Family Occupation: Employed ED ROS GENERAL - Review of Systems Review Of Systems: ROS reveals no pertinent complaints other than HPI. ED EXAM, GENERAL - Physical Exam Exam: See Below Exam Limited By: No Limitations General Appearance: Alert, WD/WN, Mild Distress, Other (discomfort) Ears: Hearing Grossly Normal Throat/Mouth: Normal Voice, No Airway Compromise Head: Atraumatic Neck: Supple, Non-Tender Respiratory/Chest: No Respiratory Distress Cardiovascular: Regular Rate, Rhythm GI/Abdominal: Soft, Non-Tender Neurological: Alert, Oriented, Normal Cognition, Normal Gait, No Motor/Sensory Deficits Psychiatric: Flat Affect Skin Exam: Warm, Dry, Normal Color Lymphatic: No Adenopathy Course - Vital Signs Last Recorded V/S: Last Vital Signs Temp 36.3 C 10/14/18 23:23 Pulse 78 10/14/18 23:23 Resp 18 10/14/18 23:23 BP 110/86 10/14/18 23:23 Pulse Ox 98 10/14/18 23:23 - Orders/Labs/Meds Orders: Active Orders 24 hr Category Date Time Status EKG 12 Lead [EKG Documentation Completion] [RC] URGENT Care 10/14/18 23:31 Active DIGOXIN [CHEM] Stat Lab 10/14/18 23:35 Received LORazepam [Ativan] Med 10/15/18 00:19 Once 1 mg PO ONETIME ONE Labs: Laboratory Tests 10/14/18 10/14/18 10/14/18 Range/Units 23:35 23:35 23:35 WBC 7.8 (5.0-10.0) 10^3/uL RBC 3.86 L (4.2-5.4) 10^6/uL Hgb 10.4 L (12.0-16.0) g/dL Hct 33.4 L (37.0-47.0) % MCV 86.5 (80-100) fL MCH 26.9 L (27.0-34.0) pg MCHC 31.1 L (33.0-35.0) g/dL Plt Count 198 (150-450) 10^3/uL Neut % (Auto) 59.8 (42.2-75.2) % Lymph % (Auto) 30.5 (20.5-50.1) % [place] % (Auto) 7.2 (2-8) % Eos % (Auto) 2.2 (1.0-3.0) % Baso % (Auto) 0.3 (0.0-1.0) % PT 28.7 H (9.0-12.0) SEC INR 3.0 H (0.9-1.2) D-Dimer, Quantitative < 100 Sodium 136 (135-145) mmol/L Potassium 3.7 (3.6-5.0) mmol/L Chloride 104 (101-111) mmol/L Carbon Dioxide 24.0 (21.0-31.0) mmol/L Anion Gap 11.7 BUN 13 (7-18) mg/dL Creatinine 0.5 L (0.6-1.3) mg/dL Est Cr Clr Drug Dosing 117.81 mL/min Estimated GFR (MDRD) > 60 BUN/Creatinine Ratio 26.00 Glucose 183 H (74-105) mg/dL Calcium 8.6 (8.4-10.2) mg/dl Total Bilirubin 0.7 (0.2-1.0) mg/dL AST 27 (10-42) IU/L ALT 17 (10-60) IU/L Alkaline Phosphatase 88 (42-121) IU/L Troponin I < 0.02 (0.00-0.02) ng/ml B-Natriuretic Peptide 85 (0-100) pg/ml Total Protein 8.1 (6.7-8.2) g/dl Albumin 3.6 (3.2-5.5) g/dl Globulin 4.5 Albumin/Globulin Ratio 0.80 - Re-Assessments/Exams Free Text/Narrative Re-Assessment/Exam: 10/15/18 00:19 results discussed with pt who is feeling ok presently. no pain. take melatonin but takes long time to work. Departure - Departure Time of Disposition: 00:20 Disposition: Home, Self-Care 01 Condition: Fair Clinical Impression: Atypical chest pain Forms: ED Department Discharge Additional Instructions: 1) rest and avoid bending lifting straining 2) follow up at clinic 3) recheck if there is any change or concern - My Orders Last 24 Hours: My Active Orders 10/14/18 23:31 EKG 12 Lead [EKG Documentation Completion] [RC] URGENT 10/14/18 23:35 DIGOXIN [CHEM] Stat 10/15/18 00:19 LORazepam [Ativan] 1 mg PO ONETIME ONE - Assessment/Plan Last 24 Hours: My Active Orders 10/14/18 23:31 EKG 12 Lead [EKG Documentation Completion] [RC] URGENT 10/14/18 23:35 DIGOXIN [CHEM] Stat 10/15/18 00:19 LORazepam [Ativan] 1 mg PO ONETIME ONE
[2018-10-15 00:01] LABS: ANION GAP 11.7; CHLORIDE,CL 104 mmol/L (101-111); SODIUM,NA 136 mmol/L (135-145)
[2018-10-15] MEDS ORDERED: LORazepam 1 MG Tab PO ONE (00:19)
== END 2018-10-15 00:29 | disposition home or self-care (01) ==
LOC: DL.ED 23:17
DX: R07.89 Other chest pain (principal); E78.00 Pure hypercholesterolemia, unspecified; I10 Essential (primary) hypertension; K21.9 Gastro-esophageal reflux disease without esophagitis; E03.9 Hypothyroidism, unspecified; E11.40 Type 2 diabetes mellitus with diabetic neuropathy, unspecified; Z88.2 Allergy status to sulfonamides; Z79.899 Other long term (current) drug therapy; Z79.01 Long term (current) use of anticoagulants; Z79.84 Long term (current) use of oral hypoglycemic drugs; Z95.4 Presence of other heart-valve replacement
CPT/HCPCS: 36415; 80053; 80162; 83880; 84484; 85025; 85379; 85610; 93005; 99285; A9270

== ENCOUNTER 2019-06-29 05:56 | Day surgery (SDC) | payer BC, OTHER ==
[~2019-06-29 05:56] MED LIST: Dextrose 5%-0.45% NaCl 1,000 ML IV SCH; Midazolam 1 MG/ML 2 ML SDV ONE; Sodium Chloride 0.9% 10 ML Syringe FLUSH PRN
[2019-06-29] MEDS ORDERED: Midazolam 1 MG/ML 2 ML SDV IV ONE ×3 (05:57→07:04)
[2019-06-29] MEDS ORDERED: fentaNYL 100 MCG/2 ML SDV ONE (05:57)
[2019-06-29] MEDS ORDERED: fentaNYL 100 MCG/2 ML SDV IV ONE ×3 (05:57→07:03)
--- NOTE | 2019-06-29 07:54 | OR ---
DATE: 06/29/2019 PROCEDURES: Esophagogastroduodenoscopy and multiple pinch biopsies. INSTRUMENT USED: [id number]-[id number] Olympus video panendoscope. PREMEDICATIONS: No oral or topical anesthesia used. Fentanyl 100 mcg intravenous, Versed 2 mg intravenous, nasal O2 cannula. 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 INDICATION: The patient with multiple abdominal symptoms, persistent in nature, and also iron deficiency anemia. Esophagogastroduodenoscopy is performed for detection of any active erosive lesions, Herrera esophagus and/or malignancy also under consideration, H pylori status to be determined, small bowel biopsies to be obtained for celiac disease if indicated, endoscopic hemostasis therapy if needed. PROCEDURE IN DETAIL: The scope was passed with ease. Adequate visualization of the esophagus was made from proximal to distal areas. No upper esophageal lesions identified. No distal esophageal stricture. No uphill or downhill esophageal varices. No Serena-Villarreal tear. No evidence of erosive esophagitis by [place] criteria. No esophageal polyp or tumor mass identified. Z-line was seen at around 40 cm distal to the oral verge, configuration consistent with grade 1 by ZAP classification. No proximal gastric varices noted. Gastric fundus examination by retroflexion showed no polypoid lesions. No gastric ulcer, malignant mass, or vascular ectasia identified. Patchy erythema of the gastric antral mucosa was noted. Duodenal bulb showed no ulcer. Visualized 2nd part of the duodenum was unremarkable. Multiple pinch biopsies, 4 in number, were taken from different areas of the second part of duodenum and tissues were also obtained from the duodenal bulb at 9 and 12 o'clock positions and sent for any histopathologic evidence of celiac disease. Multiple pinch biopsies were also taken from the gastric antrum and proximal body and sent for PyloriTek test for H pylori and histopathology. No bleeding was noted from any of the visualized areas at the completion of examination. Photographs were taken of the duodenal bulb, gastric antrum, fundus, and distal esophagus. IMPRESSION: Normal study. The patient tolerated the procedure well. [facility] /[id number]
--- NOTE | 2019-06-29 08:25 | LETTER ---
06/29/2019 Rashel Garcia MD [facility] [address] [place] [address] RE: SERA, GLORIATuan RUBIO : [address] Garcia: Ms. Gloria Wills had esophagogastroduodenoscopy done this morning and she tolerated the procedure well. I herewith send a copy of the endoscopy note and photographs for your review. Thank you. Sincerely, [facility] /[id number]
[2019-06-29 13:52] VITALS: BP 103/68; PULSE 60
== END 2019-06-29 09:30 | disposition home or self-care (01) ==
LOC: DL.ENDO 05:56
PROVIDERS: ATTEND Internal Medicine Gastroenterology
DX: K29.50 Unspecified chronic gastritis without bleeding (principal); D50.9 Iron deficiency anemia, unspecified; K21.9 Gastro-esophageal reflux disease without esophagitis; E03.9 Hypothyroidism, unspecified; E11.9 Type 2 diabetes mellitus without complications; E78.5 Hyperlipidemia, unspecified; M19.90 Unspecified osteoarthritis, unspecified site; Z79.82 Long term (current) use of aspirin; Z91.040 Latex allergy status; Z88.8 Allergy status to other drugs, medicaments and biological substances; Z88.2 Allergy status to sulfonamides
CPT/HCPCS: 43239; 87077; J2250; J3010; J7042

== ENCOUNTER 2019-06-30 07:04 | Day surgery (SDC) | payer BC, OTHER ==
[~2019-06-30 07:04] MED LIST changes: -Dextrose 5%-0.45% NaCl 1,000 ML IV SCH; -Sodium Chloride 0.9% 10 ML Syringe FLUSH PRN; +fentaNYL 100 MCG/2 ML SDV ONE
[2019-06-30] MEDS ORDERED: Midazolam 1 MG/ML 2 ML SDV IV ONE ×7 (07:05→07:54)
[2019-06-30] MEDS ORDERED: fentaNYL 100 MCG/2 ML SDV IV ONE ×3 (07:05→07:47)
[2019-06-30] MEDS ORDERED: Dextrose 5%-0.45% NaCl 1,000 ML IV SCH (07:15)
--- NOTE | 2019-06-30 10:40 | OR ---
DATE: 06/30/2019 PROCEDURE: Total colonoscopy. INSTRUMENT USED: PCF-H190DL Olympus video colonoscope. PREMEDICATIONS: Fentanyl 100 mcg intravenous, Versed 4 mg intravenous. Nasal O2 cannula. The procedure was done under pulse oximetry, BP recording, and body engineer. INDICATION: The patient with rectal bleeding and iron-deficiency anemia. Colonoscopic examination is done for detection of any polypoid lesions and removal, endoscopic hemostasis therapy if indicated. DESCRIPTION OF PROCEDURE: Initial rectal exam was unremarkable. Rigid anoscopy showed small internal hemorrhoids without bleeding from them. Few scattered diverticula were noted. The scope was passed with ease up to the ileocecal area. Photographs were taken of the normal-appearing cecum identified by landmarks of appendiceal orifice and double-bulged ileocecal folds. The bowel preparation was found to be adequate, [place] scale 2 in right and transverse colon, 3 in descending colon, total score of 7. No stricture. No vascular ectasia. No large isolated ulcerations seen. No evidence of diffuse inflammatory bowel disease in the form of friability, contact bleeding, or ulcerations. No polyp or tumor mass identified. Probing the proximal sides of folds and flexures using adequate distention and clearing up the stool material, withdrawal of the scope was made, cecum to rectum time over 6 minutes. No bleeding was noted from any of the visualized areas at the completion of examination. IMPRESSION: 1. Internal hemorrhoids. 2. Diverticulosis. The patient tolerated the procedure well. [facility] /[id number]
--- NOTE | 2019-06-30 10:51 | LETTER ---
06/30/2019 Rashel Garcia MD [facility] [address] [place] [address] RE: SERAGLORIA BUSTAMANTE JOANNE : [address] Garcia: Ms. Gloria Wills had colonoscopic examination done this morning and she tolerated the procedure well. I herewith send a copy of the endoscopy note and photographs for your review. Thank you. Sincerely, [facility] /[id number]
[2019-06-30 11:46] VITALS: BP 109/50; PULSE 60
== END 2019-06-30 10:10 | disposition home or self-care (01) ==
LOC: DL.ENDO 07:04
PROVIDERS: ATTEND Internal Medicine Gastroenterology
DX: D50.9 Iron deficiency anemia, unspecified (principal); K64.8 Other hemorrhoids; K57.31 Diverticulosis of large intestine without perforation or abscess with bleeding; E11.9 Type 2 diabetes mellitus without complications; E78.5 Hyperlipidemia, unspecified; K21.9 Gastro-esophageal reflux disease without esophagitis; E03.9 Hypothyroidism, unspecified; G47.33 Obstructive sleep apnea (adult) (pediatric); I48.91 Unspecified atrial fibrillation; M19.90 Unspecified osteoarthritis, unspecified site; Z79.82 Long term (current) use of aspirin; Z79.84 Long term (current) use of oral hypoglycemic drugs; Z79.01 Long term (current) use of anticoagulants; Z79.899 Other long term (current) drug therapy; Z88.8 Allergy status to other drugs, medicaments and biological substances; Z88.2 Allergy status to sulfonamides; Z91.048 Other nonmedicinal substance allergy status; Z91.040 Latex allergy status; Z95.2 Presence of prosthetic heart valve; Z95.0 Presence of cardiac pacemaker
CPT/HCPCS: G0121; J2250; J3010; J7042

== ENCOUNTER 2019-11-01 16:33 | Emergency (ER) | payer BC, OTHER ==
[~2019-11-01 16:33] MED LIST changes: -Midazolam 1 MG/ML 2 ML SDV ONE; +Sodium Chloride 0.9% 10 ML Syringe FLUSH PRN; -fentaNYL 100 MCG/2 ML SDV ONE
[2019-11-01 17:07] VITALS: BP 111/55; PULSE 71
--- NOTE | 2019-11-01 17:19 | CR ---
EXAMINATION: Chest 1V Frontal SEX: Female AGE: 59 years CLINICAL HISTORY: 59-year-old female complaining of chest pain Interpretation: No acute new cardiopulmonary abnormality when compared to 27 June 2018 film. Sternotomy wires, external systems software engineer leads and cardiac pacemaker (leads intact) unchanged in this patient with cardiac valve prosthesis. Borderline cardiomegaly and generalized mild pulmonary venous congestion/cephalization but no new alveolar edema or dependent pleural fluid accumulation. No new lung mass, hilar lymphadenopathy or focal lobar pneumonia. No atelectasis/collapse. Midline tracheal bronchial airway unremarkable. No pneumothorax or pneumomediastinum.
[2019-11-01 17:33] LABS: ANION GAP 13.8 mEq/L (7-13); CHLORIDE,CL 103 mmol/L (98-107); SODIUM,NA 141 mmol/L (136-145)
--- NOTE | 2019-11-01 17:44 | EDM.PDOC ---
Scribed by Shani Bruno 11/01/19 [id number] for Nima Chen MD ED HPI GENERAL MEDICAL PROBLEM - General Chief Complaint: Cardiovascular Problem Stated Complaint: ambulance Time Seen by Provider: 11/01/19 16:33 Source of Information: Reports: Patient, RN, RN Notes Reviewed History Limitations: Reports: No Limitations - History of Present Illness INITIAL COMMENTS - FREE TEXT/NARRATIVE: Patient arrives by [facility] from [facility] due to chronically recurring chest pressure with shortness of breath and exertional lightheadedness. She went to her management expert clinic yesterday and complained of these symptoms, but voices her disappointment because no labs, EKG or chest x-ray was done. She states that she was instructed to increase her Lasix and potassium and given an order for an outpatient echo. She describes exertional chest pressure associated with lightheadedness and shortness of breath that has been present for several weeks. She describes history of coronary artery disease, status post valve replacement and pacemaker, A-fib, hypertension and high cholesterol. Patient also states that she has diabetes and is being treated for heart failure. Currently she is not having any chest pain. Denies cough, sore throat, runny nose, recent travel, or any exposures to confirmed or suspected Covid-19 cases. Onset: Unknown/Unsure Duration: Constant Location: Reports: Chest Quality: Reports: Pressure Severity: Moderate Improves with: Reports: Rest Worsens with: Reports: Movement (exertion) - Related Data Allergies Allergy/AdvReac Type Severity Reaction Status Date / Time adhesive tape Allergy Rash Verified 06/30/19 07:31 lansoprazole [From Prevacid] Allergy Cannot Verified 06/30/19 07:31 Remember latex Allergy Rash Verified 06/30/19 07:31 Sulfa (Sulfonamide Allergy Rash Verified 06/30/19 07:31 Antibiotics) Home Meds: Home Meds Aspirin [[place] Aspirin] 81 mg PO DAILY 07/29/13 [History] Digoxin 0.125 mg PO DAILY 07/29/13 [History] Levothyroxine 150 mcg PO DAILY 07/29/13 [History] Warfarin [Coumadin] 4 mg PO ASDIRECTED 07/29/13 [History] atenoloL [Atenolol] 0.5 tab PO DAILY 07/29/13 [History] metFORMIN [metFORMIN XR] 500 mg PO BIDM 07/29/13 [History] glyBURIDE [Micronase] 2.5 mg PO BID 10/10/15 [History] Acetaminophen [Tylenol Extra Strength] 1,000 mg PO DAILY 06/22/19 [History] Cholecalciferol (Vitamin D3) [Vitamin D3] 1,000 units PO DAILY 06/22/19 [History ] Ferrous Gluconate 324 mg PO BID 06/22/19 [History] Furosemide 80 mg PO DAILY 06/22/19 [History] Omeprazole 20 mg PO BID 06/22/19 [History] Pioglitazone HCl 15 mg PO DAILY 06/22/19 [History] Potassium Chloride 10 meq PO BID 06/22/19 [History] Saxagliptin HCl [Onglyza] 5 mg PO DAILY 06/22/19 [History] lisinopriL [Zestril] 5 mg PO DAILY 06/22/19 [History] Albuterol Sulfate 1 unit INH Q4H PRN 11/01/19 [History] Albuterol [Proair HFA] 2 puff INH Q4H PRN 11/01/19 [History] Alogliptin Benzoate [Alogliptin] 25 mg PO DAILY 11/01/19 [History] Cholecalciferol (Vitamin D3) [Vitamin D3] 25 mcg PO DAILY 11/01/19 [History] Fluticasone Propion/Salmeterol [Fluticasone-Salmeterol 500-50] 1 puff INH BID [History] Gabapentin [Neurontin] 300 mg PO BEDTIME 11/01/19 [History] Melatonin 5 mg PO BEDTIME 11/01/19 [History] Past Medical History HEENT History: Reports: Impaired Vision 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, wears glasses Cardiovascular History: Reports: Afib, Heart Valve Replacement, High Cholesterol , Hypertension, Pacemaker Respiratory History: Reports: Sleep Apnea Gastrointestinal History: Reports: GERD, Irritable Bowel Syndrome Genitourinary History: Reports: None MARKETING DATA SPECIALIST History: Reports: Spontaneous Musculoskeletal History: Reports: Arthritis, Back Pain, Chronic, Other (See Below) Other Musculoskeletal History: chronic foot pain Neurological History: Reports: Neuropathy, Diabetic Psychiatric History: Reports: None Endocrine/Metabolic History: Reports: Diabetes, Type II, Hypothyroidism, Obesity /BMI 30+, Vitamin D Deficiency Hematologic History: Reports: Iron Deficiency Immunologic History: Reports: None Oncologic (Cancer) History: Reports: None Dermatologic History: Reports: None - Infectious Disease History Infectious Disease History: Reports: Chicken Pox, Measles - Past Surgical History HEENT Surgical History: Reports: None Cardiovascular Surgical History: Reports: Pacer, Valve Replacement Respiratory Surgical History: Reports: None GI Surgical History: Reports: Colonoscopy, EGD Female Surgical History: Reports: None Musculoskeletal Surgical History: Reports: None Social & Family History - Family History Family Medical History: Noncontributory - Caffeine Use Caffeine Use: Reports: Coffee Caffeine Use Comment: coffee daily - Living Situation & Occupation Living situation: Reports: with Family Occupation: Employed ED ROS GENERAL - Review of Systems Review Of Systems: Comprehensive ROS is negative, except as noted in HPI. ED EXAM, GENERAL - Physical Exam Exam: See Below Exam Limited By: No Limitations General Appearance: Alert, WD/WN, No Apparent Distress, Anxious, Obese Eye Exam: Bilateral Eye: Normal Inspection Ears: Normal External Exam, Normal Canal, Hearing Grossly Normal, Normal TMs Nose: Normal Inspection, Normal Mucosa, No Blood Throat/Mouth: Normal Inspection, Normal Lips, Normal Teeth, Normal Gums, Normal Oropharynx, Normal Voice, No Airway Compromise Head: Atraumatic, Normocephalic Neck: Normal Inspection, Supple, Non-Tender, Full Range of Motion Respiratory/Chest: No Respiratory Distress, No Accessory Muscle Use, Chest Non- Tender, Decreased Breath Sounds, Crackles, Rales. No: Rhonchi, Wheezing, Stridor Cardiovascular: Regular Rate, Rhythm, No Edema GI/Abdominal: Normal Bowel Sounds, Soft, Non-Tender, No Organomegaly, No Distention, No Abnormal Bruit, No Mass (Female) Exam: Deferred Rectal (Female) Exam: Deferred Back Exam: Normal Inspection, Full Range of Motion, NT Extremities: Normal Inspection, Normal Range of Motion, Non-Tender, Normal Capillary Refill, No Pedal Edema Neurological: Alert, Oriented, CN II-XII Intact, Normal Cognition, No Motor/ Sensory Deficits Psychiatric: Anxious, Depressed Mood, Flat Affect Skin Exam: Warm, Dry, Intact, Normal Color, No Rash EKG INTERPRETATION EKG Date: 11/01/19 Time: 16:44 Rhythm: Other (paced rhythm. No other interpretation) Course - Vital Signs Last Recorded V/S: Last Vital Signs Temp 97.6 F 06/03/20 16:20 Pulse 71 11/01/19 16:20 Resp 18 11/01/19 16:20 BP 111/55 L 11/01/19 16:20 Pulse Ox 97 11/01/19 16:20 - Orders/Labs/Meds Orders: Active Orders 24 hr Category Date Time Status EKG 12 Lead [EKG Documentation Completion] [RC] STAT Care 11/01/19 16:33 Active Peripheral IV Care [RC] . DIRECTED Care 11/01/19 16:34 Active Sodium Chloride 0.9% [Saline Flush] Med 11/01/19 16:33 Active 10 ml FLUSH ASDIRECTED PRN Peripheral IV Insertion Adult [OM.PC] Stat Oth 11/01/19 16:33 Ordered Medication Orders Sodium Chloride (Saline Flush) 10 ml FLUSH ASDIRECTED PRN PRN Reason: Keep Vein Open Labs: Laboratory Tests 11/01/19 11/01/19 11/01/19 Range/Units 16:53 16:53 16:53 WBC 6.9 (5.0-10.0) 10^3/uL RBC 3.59 L (4.2-5.4) 10^6/uL Hgb 10.0 L (12.0-16.0) g/dL Hct 31.7 L (37.0-47.0) % MCV 88.3 (80-100) fL MCH 27.9 (27.0-34.0) pg MCHC 31.5 L (33.0-35.0) g/dL Plt Count 191 (150-450) 10^3/uL Neut % (Auto) 66.7 (42.2-75.2) % Lymph % (Auto) 22.6 (20.5-50.1) % Delta % (Auto) 8.8 H (2-8) % Eos % (Auto) 1.6 (1.0-3.0) % Baso % (Auto) 0.3 (0.0-1.0) % PT (9.0-12.0) SEC INR (0.9-1.2) Sodium 141 (136-145) mmol/L Potassium 3.8 (3.5-5.1) mmol/L Chloride 103 (98-107) mmol/L Carbon Dioxide 28 (21-32) mmol/L Anion Gap 13.8 H (7-13) mEq/L BUN 20 H (7-18) mg/dL Creatinine 0.92 (0.55-1.02) mg/dL Est Cr Clr Drug Dosing 63.24 mL/min Estimated GFR (MDRD) > 60 BUN/Creatinine Ratio 21.7 (No establ ref range) Glucose 97 (74-99) mg/dL Calcium 8.7 (8.5-10.1) mg/dL Total Bilirubin 0.5 (0.2-1.0) mg/dL AST 23 (15-37) U/L ALT 20 (14-59) U/L Alkaline Phosphatase 103 (46-116) U/L Troponin I < 0.017 (0.000-0.056) ng/mL B-Natriuretic Peptide 157 H (0-100) pg/ml Total Protein 8.2 (6.4-8.2) g/dL Albumin 3.5 (3.4-5.0) g/dL Globulin 4.7 Albumin/Globulin Ratio 0.7 Lipase 163 (73-393) U/L Digoxin 0.4 L (0.9-2.0) ng/mL /08/17 Range/Units 16:53 WBC (5.0-10.0) 10^3/uL RBC (4.2-5.4) 10^6/uL Hgb (12.0-16.0) g/dL Hct (37.0-47.0) % MCV (80-100) fL MCH (27.0-34.0) pg MCHC (33.0-35.0) g/dL Plt Count (150-450) 10^3/uL Neut % (Auto) (42.2-75.2) % Lymph % (Auto) (20.5-50.1) % Delta % (Auto) (2-8) % Eos % (Auto) (1.0-3.0) % Baso % (Auto) (0.0-1.0) % PT 15.6 H D (9.0-12.0) SEC INR 1.7 H (0.9-1.2) Sodium (136-145) mmol/L Potassium (3.5-5.1) mmol/L Chloride (98-107) mmol/L Carbon Dioxide (21-32) mmol/L Anion Gap (7-13) mEq/L BUN (7-18) mg/dL Creatinine (0.55-1.02) mg/dL Est Cr Clr Drug Dosing mL/min Estimated GFR (MDRD) BUN/Creatinine Ratio (No establ ref range) Glucose (74-99) mg/dL Calcium (8.5-10.1) mg/dL Total Bilirubin (0.2-1.0) mg/dL AST (15-37) U/L ALT (14-59) U/L Alkaline Phosphatase (46-116) U/L Troponin I (0.000-0.056) ng/mL B-Natriuretic Peptide (0-100) pg/ml Total Protein (6.4-8.2) g/dL Albumin (3.4-5.0) g/dL Globulin Albumin/Globulin Ratio Lipase (73-393) U/L Digoxin (0.9-2.0) ng/mL Meds: Medications Generic Name Dose Route Start Last Admin Trade Name Freq PRN Reason Stop Dose Admin Sodium Chloride 10 ml 11/01/19 16:33 Saline Flush FLUSH ASDIRECTED PRN Keep Vein Open - Radiology Interpretation Free Text/Narrative:: Chest x-ray: No acute cardiopulmonary abnormality compared to June 27, 2018 film. See rad report. Departure - Departure Time of Disposition: 17:41 Disposition: Home, Self-Care 01 Condition: Good Clinical Impression: Exertional dyspnea, Recurrent chest pain Instructions: Nonspecific Chest Pain, Adult, [id number], Shortness of Breath , Adult, [id number] Forms: ED Department Discharge Additional Instructions: Continue current medications as prescribed. Follow up for the ECHO and with your management expert in the next 1 to 2 weeks. Return to ER if worse at any time or if any new symptoms develop. Sepsis Event Note - Focused Exam Vital Signs: Vital Signs Temp Pulse Resp BP Pulse Ox 11/01/19 16:20 97.6 F 71 18 111/55 L 97 Date Exam was Performed: 11/01/19 Time Exam was Performed: 17:38 - My Orders Last 24 Hours: My Active Orders 11/01/19 16:33 EKG 12 Lead [EKG Documentation Completion] [RC] STAT Sodium Chloride 0.9% [Saline Flush] 10 ml FLUSH ASDIRECTED PRN Peripheral IV Insertion Adult [OM.PC] Stat 11/01/19 16:34 Peripheral IV Care [RC] . DIRECTED - Assessment/Plan Last 24 Hours: My Active Orders 11/01/19 16:33 EKG 12 Lead [EKG Documentation Completion] [RC] STAT Sodium Chloride 0.9% [Saline Flush] 10 ml FLUSH ASDIRECTED PRN Peripheral IV Insertion Adult [OM.PC] Stat 11/01/19 16:34 Peripheral IV Care [RC] . DIRECTED I have read and agree with the documentation that has been completed regarding this visit. By signing this record, I attest that the documentation was completed in my physical presence and is an accurate record of the encounter.
== END 2019-11-01 18:05 | disposition home or self-care (01) ==
LOC: DL.ED 16:33
DX: R06.00 Dyspnea, unspecified (principal); R07.9 Chest pain, unspecified; I10 Essential (primary) hypertension; E78.00 Pure hypercholesterolemia, unspecified; I48.91 Unspecified atrial fibrillation; E66.9 Obesity, unspecified; K21.9 Gastro-esophageal reflux disease without esophagitis; E11.40 Type 2 diabetes mellitus with diabetic neuropathy, unspecified; E03.9 Hypothyroidism, unspecified; Z79.01 Long term (current) use of anticoagulants; Z79.84 Long term (current) use of oral hypoglycemic drugs; Z91.048 Other nonmedicinal substance allergy status; Z91.040 Latex allergy status; Z88.2 Allergy status to sulfonamides; Z88.8 Allergy status to other drugs, medicaments and biological substances; Z79.82 Long term (current) use of aspirin; Z79.899 Other long term (current) drug therapy
CPT/HCPCS: 36415; 71045; 80053; 80162; 83690; 83880; 84484; 85025; 85610; 93005; 99285-25

== ENCOUNTER 2020-06-21 15:51 | Emergency (ER) | payer BC, OTHER ==
[2020-06-21 16:08] VITALS: BP 120/60; PULSE 61
--- NOTE | 2020-06-21 16:25 | EDM.PDOC ---
<Vaibhav Viramontes Susana - Last Filed: 06/21/20 18:07> ED HPI GENERAL MEDICAL PROBLEM - General Chief Complaint: Chest Pain Stated Complaint: LEFT SIDE HEART PAIN Time Seen by Provider: 06/21/20 16:19 Source of Information: Reports: Patient History Limitations: Reports: No Limitations - History of Present Illness INITIAL COMMENTS - FREE TEXT/NARRATIVE: 60 y/o F c/o CP and nausea on and off since 1 pm today. Pt states the pain came on suddenly at rest while talking with a metrologist in [place]. Pt states the pain came on suddenly and was sharp down the left side of the chest and medial left arm. The pain lasted about 15 min and then went away without intervention. The pain returned and dissapated agian 7-8 more times. At the present pt is pain free and is not nauseated. Denies carmona, fever, vision prob, abd pn, db, extremity pain. Onset: Today Duration: Hour(s): Location: Reports: Chest Quality: Reports: Sharp Severity: Moderate Improves with: Reports: None Worsens with: Reports: None Associated Symptoms: Reports: Nausea/Vomiting Left Chest Pain Score (Numeric/FACES): 2 - Related Data Allergies Allergy/AdvReac Type Severity Reaction Status Date / Time adhesive tape Allergy Rash Verified 06/21/20 16:04 lansoprazole [From Prevacid] Allergy Cannot Verified 06/21/20 16:04 Remember latex Allergy Rash Verified 06/21/20 16:04 Sulfa (Sulfonamide Allergy Rash Verified 06/21/20 16:04 Antibiotics) Home Meds: Home Meds Aspirin [[place] Aspirin] 81 mg PO DAILY 07/29/13 [History] Digoxin 0.125 mg PO DAILY 07/29/13 [History] Levothyroxine 150 mcg PO DAILY 07/29/13 [History] Warfarin [Coumadin] 4 mg PO ASDIRECTED 07/29/13 [History] atenoloL [Atenolol] 0.5 tab PO DAILY 07/29/13 [History] metFORMIN [metFORMIN XR] 500 mg PO BIDM 07/29/13 [History] glyBURIDE [Micronase] 2.5 mg PO BID 10/10/15 [History] Acetaminophen [Tylenol Extra Strength] 1,000 mg PO DAILY PRN 06/22/19 [History] Furosemide 80 mg PO DAILY 06/22/19 [History] Omeprazole 20 mg PO BID 06/22/19 [History] Pioglitazone HCl 15 mg PO DAILY 06/22/19 [History] Potassium Chloride 10 meq PO BID 06/22/19 [History] lisinopriL [Zestril] 5 mg PO DAILY 06/22/19 [History] Albuterol Sulfate 1 unit INH Q4H PRN 11/01/19 [History] Albuterol [Proair HFA] 2 puff INH Q4H PRN 11/01/19 [History] Alogliptin Benzoate [Alogliptin] 25 mg PO DAILY 11/01/19 [History] Ascorbic Acid [Vitamin C] 250 mg PO BID 11/01/19 [History] Cholecalciferol (Vitamin D3) [Vitamin D3] 25 mcg PO DAILY 11/01/19 [History] Ferrous Sulfate 325 mg PO BID 11/01/19 [History] Fluticasone Propion/Salmeterol [Fluticasone-Salmeterol 500-50] 1 puff INH BID 11/01/19 [History] Gabapentin [Neurontin] 300 mg PO BEDTIME 11/01/19 [History] Melatonin 5 mg PO BEDTIME 11/01/19 [History] Past Medical History HEENT History: Reports: Impaired Vision 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, wears glasses Cardiovascular History: Reports: Afib, Heart Valve Replacement, High Cholesterol, Hypertension, Pacemaker Respiratory History: Reports: Sleep Apnea Gastrointestinal History: Reports: GERD, Irritable Bowel Syndrome Genitourinary History: Reports: None 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 Musculoskeletal History: Reports: Arthritis, Back Pain, Chronic, Other (See Willian burk) Other Musculoskeletal History: chronic foot pain Neurological History: Reports: Neuropathy, Diabetic Psychiatric History: Reports: None Endocrine/Metabolic History: Reports: Diabetes, Type II, Hypothyroidism, Obesity/BMI 30+, Vitamin D Deficiency Hematologic History: Reports: Iron Deficiency Immunologic History: Reports: None Oncologic (Cancer) History: Reports: None Dermatologic History: Reports: None - Infectious Disease History Infectious Disease History: Reports: Chicken Pox, Measles - Past Surgical History HEENT Surgical History: Reports: None Cardiovascular Surgical History: Reports: Pacer, Valve Replacement Respiratory Surgical History: Reports: None GI Surgical History: Reports: Colonoscopy, EGD Female Surgical History: Reports: None Musculoskeletal Surgical History: Reports: None Social & Family History - Family History Family Medical History: No Pertinent Family History - Tobacco Use Tobacco Use Status *Q: Never Tobacco User - Caffeine Use Caffeine Use: Reports: Coffee Caffeine Use Comment: coffee daily - Recreational Drug Use Recreational Drug Use: No - Living Situation & Occupation Living situation: Reports: with Family Occupation: Employed ED ROS GENERAL - Review of Systems Review Of Systems: Comprehensive ROS is negative, except as noted in HPI. ED EXAM, GENERAL - Physical Exam Exam: See Below Exam Limited By: No Limitations General Appearance: Alert, WD/WN, No Apparent Distress Eye Exam: Bilateral Eye: PERRL Ears: Normal External Exam, Normal Canal, Hearing Grossly Normal, Normal TMs Nose: Normal Inspection, Normal Mucosa, No Blood Throat/Mouth: Normal Inspection, Normal Lips, Normal Teeth, Normal Gums, Normal Oropharynx, Normal Voice, No Airway Compromise Head: Atraumatic, Normocephalic Neck: Normal Inspection, Supple, Non-Tender, Full Range of Motion Respiratory/Chest: No Respiratory Distress, Lungs Clear, Normal Breath Sounds, No Accessory Muscle Use, Chest Non-Tender Cardiovascular: Normal Peripheral Pulses, Regular Rate, Rhythm, No Edema, No JVD, Other (soft systolic murmur) GI/Abdominal: Soft, Non-Tender (Female) Exam: Deferred Rectal (Female) Exam: Deferred Back Exam: Normal Inspection Extremities: Normal Inspection, Normal Range of Motion, Non-Tender, Normal Capillary Refill, No Pedal Edema Neurological: Alert, Oriented, CN II-XII Intact, Normal Cognition, Normal Gait, Normal Reflexes, No Motor/Sensory Deficits Psychiatric: Normal Affect, Normal Mood Skin Exam: Warm, Dry, Intact, Normal Color, No Rash Departure - Departure Time of Disposition: 18:07 Disposition: Home, Self-Care 01 Condition: Good Clinical Impression: Nonspecific chest pain Forms: ED Department Discharge Additional Instructions: Follow up with primary care provider early next week for continued evaluation and care. May take tylenol or ibuprofen for pain as needed. Return to ER if any new concerns or symptoms develop. Sepsis Event Note (ED) - Evaluation Sepsis Screening Result: No Definite Risk <Sandip Reese - Last Filed: 06/21/20 18:17> Course - Vital Signs Last Recorded V/S: Last Vital Signs Temp 35.9 C L 06/21/20 16:04 Pulse 61 01/22/21 16:04 Resp 18 06/21/20 16:04 BP 120/60 06/21/20 16:04 Pulse Ox 98 06/21/20 16:04 - Orders/Labs/Meds Orders: Active Orders 24 hr Category Date Time Status EKG Documentation Completion [RC] STAT Care 06/21/20 16:03 Active Labs: Laboratory Tests 06/21/20 06/21/20 06/21/20 Range/Units 16:15 16:15 16:15 WBC 6.6 (5.0-10.0) 10^3/uL RBC 4.08 L (4.2-5.4) 10^6/uL Hgb 11.7 L D (12.0-16.0) g/dL Hct 36.1 L (37.0-47.0) % MCV 88.5 (80-100) fL MCH 28.7 (27.0-34.0) pg MCHC 32.4 L (33.0-35.0) g/dL Plt Count 223 (150-450) 10^3/uL Neut % (Auto) 58.3 (42.2-75.2) % Lymph % (Auto) 29.8 (20.5-50.1) % [place] % (Auto) 8.7 H (2-8) % Eos % (Auto) 2.4 (1.0-3.0) % Baso % (Auto) 0.8 (0.0-1.0) % D-Dimer, Quantitative 233 (0-400) ng/mL Sodium 139 (136-145) mmol/L Potassium 3.7 (3.5-5.1) mmol/L Chloride 101 (98-107) mmol/L Carbon Dioxide 30 (21-32) mmol/L Anion Gap 11.7 (7-13) mEq/L BUN 18 (7-18) mg/dL Creatinine 1.03 H (0.55-1.02) mg/dL Est Cr Clr Drug Dosing 55.78 mL/min Estimated GFR (MDRD) 54 BUN/Creatinine Ratio 17.5 (No establ ref range) Glucose 220 H (74-99) mg/dL Calcium 8.6 (8.5-10.1) mg/dL Magnesium 1.8 (1.8-2.4) mg/dL Total Bilirubin 0.3 (0.2-1.0) mg/dL AST 24 (15-37) U/L ALT 26 (14-59) U/L Alkaline Phosphatase 147 H (46-116) U/L Troponin I < 0.017 (0.000-0.056) ng/mL Total Protein 8.3 H (6.4-8.2) g/dL Albumin 3.5 (3.4-5.0) g/dL Globulin 4.8 Albumin/Globulin Ratio 0.7 Influenza Type A RNA (NEGATIVE) Influenza Type B RNA (NEGATIVE) SARS-CoV-2 RNA (АННА) (NEGATIVE) 06/21/20 Range/Units 17:12 WBC (5.0-10.0) 10^3/uL RBC (4.2-5.4) 10^6/uL Hgb (12.0-16.0) g/dL Hct (37.0-47.0) % MCV (80-100) fL MCH (27.0-34.0) pg MCHC (33.0-35.0) g/dL Plt Count (150-450) 10^3/uL Neut % (Auto) (42.2-75.2) % Lymph % (Auto) (20.5-50.1) % [place] % (Auto) (2-8) % Eos % (Auto) (1.0-3.0) % Baso % (Auto) (0.0-1.0) % D-Dimer, Quantitative (0-400) ng/mL Sodium (136-145) mmol/L Potassium (3.5-5.1) mmol/L Chloride (98-107) mmol/L Carbon Dioxide (21-32) mmol/L Anion Gap (7-13) mEq/L BUN (7-18) mg/dL Creatinine (0.55-1.02) mg/dL Est Cr Clr Drug Dosing mL/min Estimated GFR (MDRD) BUN/Creatinine Ratio (No establ ref range) Glucose (74-99) mg/dL Calcium (8.5-10.1) mg/dL Magnesium (1.8-2.4) mg/dL Total Bilirubin (0.2-1.0) mg/dL AST (15-37) U/L ALT (14-59) U/L Alkaline Phosphatase (46-116) U/L Troponin I (0.000-0.056) ng/mL Total Protein (6.4-8.2) g/dL Albumin (3.4-5.0) g/dL Globulin Albumin/Globulin Ratio Influenza Type A RNA Negative (NEGATIVE) Influenza Type B RNA Negative (NEGATIVE) SARS-CoV-2 RNA (АННА) Negative (NEGATIVE) - Re-Assessments/Exams Free Text/Narrative Re-Assessment/Exam: 06/21/20 18:12 I have examined the patient. I have discussed findings and treatment plan with the PA student. I agree with the assessment and plan in the following students note. Sepsis Event Note (ED) - Focused Exam Vital Signs: Vital Signs Temp Pulse Resp BP Pulse Ox 06/21/20 16:04 35.9 C L 61 18 120/60 98
[2020-06-21 16:48] LABS: SODIUM,NA 139 mmol/L (136-145)
[2020-06-21 16:49] LABS: ANION GAP 11.7 mEq/L (7-13); CHLORIDE,CL 101 mmol/L (98-107)
[2020-06-21 17:58] LABS: CORONAVIRUS COVID-19 NAA NEGATIVE (NEGATIVE)
== END 2020-06-21 18:22 | disposition home or self-care (01) ==
LOC: DL.ED 15:51
DX: R07.9 Chest pain, unspecified (principal); I48.91 Unspecified atrial fibrillation; I10 Essential (primary) hypertension; K21.9 Gastro-esophageal reflux disease without esophagitis; M19.90 Unspecified osteoarthritis, unspecified site; E11.40 Type 2 diabetes mellitus with diabetic neuropathy, unspecified; E03.9 Hypothyroidism, unspecified; E66.9 Obesity, unspecified; Z68.27 Body mass index [BMI] 27.0-27.9, adult; Z79.82 Long term (current) use of aspirin; Z79.84 Long term (current) use of oral hypoglycemic drugs; Z79.01 Long term (current) use of anticoagulants; Z79.899 Other long term (current) drug therapy; Z91.048 Other nonmedicinal substance allergy status; Z88.8 Allergy status to other drugs, medicaments and biological substances; Z91.040 Latex allergy status; Z88.2 Allergy status to sulfonamides; Z20.822 Contact with and (suspected) exposure to COVID-19
CPT/HCPCS: 0240U; 36415; 80053; 83735; 84484; 85025; 85379; 93005; 99283; 99285

== ENCOUNTER 2020-12-02 13:12 | Emergency (ER) | payer BC, OTHER ==
[2020-12-02] MEDS ORDERED: Amoxicillin 500 MG Cap PO ONE ×2 (13:13→15:37)
[2020-12-02 14:59] VITALS: BP 113/44; PULSE 61
[2020-12-02 15:14] LABS: CORONAVIRUS COVID-19 NAA NEGATIVE (NEGATIVE)
--- NOTE | 2020-12-02 15:43 | EDM.PDOC ---
Scribed by Shani Bruno 12/02/20 1540 for Chica Marshall MD ED HPI GENERAL MEDICAL PROBLEM - General Chief Complaint: General Stated Complaint: CAN'T SWALLOW, THROAT PAIN, FEVER Time Seen by Provider: 12/02/20 15:31 Source of Information: Reports: Patient, Family, RN Notes Reviewed History Limitations: Reports: No Limitations - History of Present Illness INITIAL COMMENTS - FREE TEXT/NARRATIVE: Patient presents to ED with complaint of a sore throat. It started yesterday and has been progressed that she cannot even drink water or pain. Patient does have a little bit of a runny nose but not a stuffy. She has a little cough secondary to the nasal drainage. She has noted a little ear fullness, but no pain. She denies any known sick contacts or exposure to strep. No fevers but she has had chills. Onset Date: 12/01/20 Duration: Getting Worse Quality: Reports: Ache Severity: Moderate Improves with: Reports: None Worsens with: Reports: None Associated Symptoms: Reports: No Other Symptoms Throat Pain Score (Numeric/FACES): 8 - Related Data Allergies Allergy/AdvReac Type Severity Reaction Status Date / Time adhesive tape Allergy Rash Verified 06/21/20 16:04 lansoprazole [From Prevacid] Allergy Cannot Verified 06/21/20 16:04 Remember latex Allergy Rash Verified 06/21/20 16:04 Sulfa (Sulfonamide Allergy Rash Verified 06/21/20 16:04 Antibiotics) Home Meds: Home Meds Aspirin [[place] Aspirin] 81 mg PO DAILY 07/29/13 [History] Digoxin 0.125 mg PO DAILY 07/29/13 [History] Levothyroxine 150 mcg PO DAILY 07/29/13 [History] Warfarin [Coumadin] 4 mg PO ASDIRECTED 07/29/13 [History] atenoloL [Atenolol] 0.5 tab PO DAILY 07/29/13 [History] metFORMIN [metFORMIN XR] 500 mg PO BIDM 07/29/13 [History] glyBURIDE [Micronase] 2.5 mg PO BID 10/10/15 [History] Acetaminophen [Tylenol Extra Strength] 1,000 mg PO DAILY PRN 06/22/19 [History] Furosemide 80 mg PO DAILY 06/22/19 [History] Omeprazole 20 mg PO BID 06/22/19 [History] Pioglitazone HCl 15 mg PO DAILY 06/22/19 [History] Potassium Chloride 10 meq PO BID 06/22/19 [History] lisinopriL [Zestril] 5 mg PO DAILY 06/22/19 [History] Albuterol Sulfate 1 unit INH Q4H PRN 11/01/19 [History] Albuterol [Proair HFA] 2 puff INH Q4H PRN 11/01/19 [History] Alogliptin Benzoate [Alogliptin] 25 mg PO DAILY 11/01/19 [History] Ascorbic Acid [Vitamin C] 250 mg PO BID 11/01/19 [History] Cholecalciferol (Vitamin D3) [Vitamin D3] 25 mcg PO DAILY 11/01/19 [History] Ferrous Sulfate 325 mg PO BID 11/01/19 [History] Fluticasone Propion/Salmeterol [Fluticasone-Salmeterol 500-50] 1 puff INH BID 11/01/19 [History] Gabapentin [Neurontin] 300 mg PO BEDTIME 11/01/19 [History] Melatonin 5 mg PO BEDTIME 11/01/19 [History] Past Medical History HEENT History: Reports: Impaired Vision 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, wears glasses Cardiovascular History: Reports: Afib, Heart Valve Replacement, High Cholesterol, Hypertension, Pacemaker Other Cardiovascular History: pacemaker 2012 Respiratory History: Reports: Sleep Apnea Gastrointestinal History: Reports: GERD, Irritable Bowel Syndrome Genitourinary History: Reports: None 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 Musculoskeletal History: Reports: Arthritis, Back Pain, Chronic, Other (See Below) Other Musculoskeletal History: chronic foot pain Neurological History: Reports: Neuropathy, Diabetic Psychiatric History: Reports: None Endocrine/Metabolic History: Reports: Diabetes, Type II, Hypothyroidism, Obesity/BMI 30+, Vitamin D Deficiency Hematologic History: Reports: Iron Deficiency Immunologic History: Reports: None Oncologic (Cancer) History: Reports: None Dermatologic History: Reports: None - Infectious Disease History Infectious Disease History: Reports: Chicken Pox, Measles - Past Surgical History HEENT Surgical History: Reports: None Cardiovascular Surgical History: Reports: Pacer, Valve Replacement Other Cardiovascular Surgeries/Procedures: Mitral Valve replaced 2012 Respiratory Surgical History: Reports: None GI Surgical History: Reports: Colonoscopy, EGD Female Surgical History: Reports: None Musculoskeletal Surgical History: Reports: None Social & Family History - Family History Family Medical History: No Pertinent Family History - Tobacco Use Tobacco Use Status *Q: Never Tobacco User Second Hand Smoke Exposure: No - Caffeine Use Caffeine Use: Reports: None Caffeine Use Comment: coffee daily - Recreational Drug Use Recreational Drug Use: No - Living Situation & Occupation Living situation: Reports: with Family Occupation: Employed ED ROS GENERAL - Review of Systems Review Of Systems: Comprehensive ROS is negative, except as noted in HPI. ED EXAM, GENERAL - Physical Exam Exam: See Below Exam Limited By: No Limitations General Appearance: Alert, WD/WN, No Apparent Distress Eye Exam: Bilateral Eye: EOMI, Normal Inspection, PERRL Ears: Other (clear fluid in the right middle ear) Nose: Other (rhinorrhea, otherwise normal.) Throat/Mouth: Other (significantly erythematous and swollen with small clefting of the uvula noted. Uvula midline. ) Head: Atraumatic, Normocephalic Neck: Normal Inspection, Supple, Non-Tender, Full Range of Motion Respiratory/Chest: No Respiratory Distress, Lungs Clear, Normal Breath Sounds, No Accessory Muscle Use, Chest Non-Tender Cardiovascular: Normal Peripheral Pulses, Regular Rate, Rhythm, No Edema, No Gallop, No JVD, No Murmur, No Rub GI/Abdominal: Normal Bowel Sounds, Soft, Non-Tender, No Organomegaly, No Distention, No Abnormal Bruit, No Mass (Female) Exam: Deferred Rectal (Female) Exam: Deferred Back Exam: Normal Inspection, Full Range of Motion, NT Extremities: Normal Inspection, Normal Range of Motion, Non-Tender, Normal Capillary Refill, No Pedal Edema Neurological: Alert, Oriented, CN II-XII Intact, Normal Cognition, Normal Gait, Normal Reflexes, No Motor/Sensory Deficits Psychiatric: Normal Affect, Normal Mood Skin Exam: Warm, Dry, Intact, Normal Color, No Rash Course - Vital Signs Last Recorded V/S: Last Vital Signs Temp 99.3 F 12/02/20 14:24 Pulse 61 12/02/20 14:24 Resp 18 12/02/20 14:24 BP 113/44 L 12/02/20 14:24 Pulse Ox 98 12/02/20 14:24 - Orders/Labs/Meds Labs: Laboratory Tests 12/02/20 Range/Units 14:27 Influenza Type A RNA Negative (NEGATIVE) Influenza Type B RNA Negative (NEGATIVE) SARS-CoV-2 RNA (АННА) Negative (NEGATIVE) Meds: Medications Discontinued Medications Generic Name Dose Route Start Last Admin Trade Name Amy PRN Reason Stop Dose Admin Amoxicillin 500 mg 12/02/20 15:37 Amoxicillin 500 Mg Cap PO 12/02/20 15:38 ONETIME ONE Departure - Departure Time of Disposition: 15:40 Disposition: Home, Self-Care 01 Condition: Good Clinical Impression: Pharyngitis Qualifiers: Pharyngitis/tonsillitis etiology: streptococcus Qualified Code(s): J02.0 - Streptococcal pharyngitis - Discharge Information *PRESCRIPTION DRUG MONITORING PROGRAM REVIEWED*: Not Applicable *COPY OF PRESCRIPTION DRUG MONITORING REPORT IN PATIENT FRED: Not Applicable Instructions: Pharyngitis, [id number] Forms: ED Department Discharge Additional Instructions: RX: Amoxicillin 500mg 3 times daily for ten days. First dose given in ER, second sent home from ER, script for the rest. Over the counter medications as needed. Follow up with primary if not improved. Sepsis Event Note (ED) - Evaluation Sepsis Screening Result: No Definite Risk - Focused Exam Vital Signs: Vital Signs Temp Pulse Resp BP Pulse Ox 12/02/20 14:24 99.3 F 61 18 113/44 L 98 I have read and agree with the documentation that has been completed regarding this visit. By signing this record, I attest that the documentation was completed in my physical presence and is an accurate record of the encounter.
[2020-12-02] MEDS ORDERED: Amoxicillin 500 MG Cap ONE (15:49)
== END 2020-12-02 15:51 | disposition home or self-care (01) ==
LOC: DL.ED 13:12
DX: J02.0 Streptococcal pharyngitis (principal); I48.91 Unspecified atrial fibrillation; E78.00 Pure hypercholesterolemia, unspecified; I10 Essential (primary) hypertension; K21.9 Gastro-esophageal reflux disease without esophagitis; E11.9 Type 2 diabetes mellitus without complications; E03.9 Hypothyroidism, unspecified; E66.9 Obesity, unspecified; Z68.30 Body mass index [BMI] 30.0-30.9, adult; Z91.048 Other nonmedicinal substance allergy status; Z91.040 Latex allergy status; Z88.2 Allergy status to sulfonamides; Z88.8 Allergy status to other drugs, medicaments and biological substances; Z95.0 Presence of cardiac pacemaker; Z20.822 Contact with and (suspected) exposure to COVID-19
CPT/HCPCS: 0240U; 99283; A9270

== ENCOUNTER 2021-02-05 08:59 | Emergency (ER) | payer BC, OTHER ==
[2021-02-05] MEDS ORDERED: Sodium Chloride 0.9% 10 ML Syringe FLUSH PRN (09:20)
[2021-02-05 10:02] LABS: ANION GAP 8.8 mEq/L (7-13); CHLORIDE,CL 105 mmol/L (98-107); SODIUM,NA 140 mmol/L (136-145)
--- NOTE | 2021-02-05 10:15 | EDM.PDOC ---
ED HPI GENERAL MEDICAL PROBLEM - General Chief Complaint: Chest Pain Stated Complaint: CHEST PAIN Time Seen by Provider: 02/05/21 10:10 Source of Information: Reports: Patient History Limitations: Reports: No Limitations - History of Present Illness INITIAL COMMENTS - FREE TEXT/NARRATIVE: 60 y/o F c/o ches pressure since Wednesday that is worse with exertion and resolved yesterday. She states that the CP feels sharp adn shoot over to the left arm pit and rated it a 2/10. She reports she took her Prilosec yesterday and it completely resolved her symptoms. She is currently pain free and has no complaints. No heart hx. She states she had an echo yesterday but has not been made aware of the results. Denies fever, cough, chills, drugs, etoh, db, abd pn, back pn. Onset: Gradual Duration: Day(s): Location: Reports: Chest Quality: Reports: Pressure Severity: Mild Improves with: Reports: None Worsens with: Reports: None Chest Pain Score (Numeric/FACES): 8 - Related Data Allergies Allergy/AdvReac Type Severity Reaction Status Date / Time adhesive tape Allergy Rash Verified 06/21/20 16:04 lansoprazole [From Prevacid] Allergy Cannot Verified 06/21/20 16:04 Remember latex Allergy Rash Verified 06/21/20 16:04 Sulfa (Sulfonamide Allergy Rash Verified 06/21/20 16:04 Antibiotics) Home Meds: Home Meds Aspirin [[place] Aspirin] 81 mg PO DAILY 07/29/13 [History] Digoxin 0.125 mg PO DAILY 07/29/13 [History] Levothyroxine 150 mcg PO DAILY 07/29/13 [History] Warfarin [Coumadin] 4 mg PO ASDIRECTED 07/29/13 [History] atenoloL [Atenolol] 0.5 tab PO DAILY 07/29/13 [History] metFORMIN [metFORMIN XR] 500 mg PO BIDM 07/29/13 [History] glyBURIDE [Micronase] 2.5 mg PO BID 10/10/15 [History] Acetaminophen [Tylenol Extra Strength] 1,000 mg PO DAILY PRN 06/22/19 [History] Furosemide 80 mg PO DAILY 06/22/19 [History] Omeprazole 20 mg PO BID 06/22/19 [History] Pioglitazone HCl 15 mg PO DAILY 06/22/19 [History] Potassium Chloride 10 meq PO BID 06/22/19 [History] lisinopriL [Zestril] 5 mg PO DAILY 06/22/19 [History] Albuterol Sulfate 1 unit INH Q4H PRN 11/01/19 [History] Albuterol [Proair HFA] 2 puff INH Q4H PRN 11/01/19 [History] Alogliptin Benzoate [Alogliptin] 25 mg PO DAILY 11/01/19 [History] Ascorbic Acid [Vitamin C] 250 mg PO BID 11/01/19 [History] Cholecalciferol (Vitamin D3) [Vitamin D3] 25 mcg PO DAILY 11/01/19 [History] Ferrous Sulfate 325 mg PO BID 11/01/19 [History] Fluticasone Propion/Salmeterol [Fluticasone-Salmeterol 500-50] 1 puff INH BID 11/01/19 [History] Gabapentin [Neurontin] 300 mg PO BEDTIME 11/01/19 [History] Melatonin 5 mg PO BEDTIME 11/01/19 [History] Past Medical History HEENT History: Reports: Impaired Vision 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, wears glasses Cardiovascular History: Reports: Afib, Heart Valve Replacement, High Cholesterol, Hypertension, Pacemaker Other Cardiovascular History: pacemaker 2012 Respiratory History: Reports: Sleep Apnea Gastrointestinal History: Reports: GERD, Irritable Bowel Syndrome Genitourinary History: Reports: None 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 Musculoskeletal History: Reports: Arthritis, Back Pain, Chronic, Other (See Below) Other Musculoskeletal History: chronic foot pain Neurological History: Reports: Neuropathy, Diabetic Psychiatric History: Reports: None Endocrine/Metabolic History: Reports: Diabetes, Type II, Hypothyroidism, Obesity/BMI 30+, Vitamin D Deficiency Hematologic History: Reports: Iron Deficiency Immunologic History: Reports: None Oncologic (Cancer) History: Reports: None Dermatologic History: Reports: None - Infectious Disease History Infectious Disease History: Reports: Chicken Pox, Measles - Past Surgical History HEENT Surgical History: Reports: None Cardiovascular Surgical History: Reports: Pacer, Valve Replacement Other Cardiovascular Surgeries/Procedures: Mitral Valve replaced 2012 Respiratory Surgical History: Reports: None GI Surgical History: Reports: Colonoscopy, EGD Female Surgical History: Reports: None Musculoskeletal Surgical History: Reports: None Social & Family History - Family History Family Medical History: No Pertinent Family History - Caffeine Use Caffeine Use: Reports: None Caffeine Use Comment: coffee daily - Living Situation & Occupation Living situation: Reports: with Family Occupation: Employed ED ROS GENERAL - Review of Systems Review Of Systems: Comprehensive ROS is negative, except as noted in HPI. ED EXAM, GENERAL - Physical Exam Exam: See Below Exam Limited By: No Limitations General Appearance: Alert, No Apparent Distress Eye Exam: Bilateral Eye: PERRL Nose: Normal Inspection, Normal Mucosa, No Blood Throat/Mouth: Normal Oropharynx, Normal Voice, No Airway Compromise Head: Atraumatic, Normocephalic Neck: Supple, Non-Tender Respiratory/Chest: No Respiratory Distress, Lungs Clear, Normal Breath Sounds Cardiovascular: Normal Peripheral Pulses, Regular Rate, Rhythm GI/Abdominal: Soft, Non-Tender (Female) Exam: Deferred Rectal (Female) Exam: Deferred Back Exam: Normal Inspection, Full Range of Motion Extremities: Normal Inspection, Normal Range of Motion, No Pedal Edema Neurological: Alert, Oriented Psychiatric: Normal Affect, Normal Mood Skin Exam: Warm, Dry, Intact #1 Interpretation EKG Date: 02/05/21 Time: 09:35 Rhythm: Other (AV paced) P-Wave: Absent QRS: Wide ST-T: Normal QT: Normal Course - Vital Signs Last Recorded V/S: Last Vital Signs Temp 97.8 F 02/05/21 10:00 Pulse 60 02/05/21 10:00 Resp 14 02/05/21 10:00 BP 110/59 L 02/05/21 10:00 Pulse Ox 99 02/05/21 10:00 - Orders/Labs/Meds Orders: Active Orders 24 hr Category Date Time Status Peripheral IV Care [RC] . DIRECTED Care 02/05/21 09:22 Active Sodium Chloride 0.9% [Saline Flush] Med 02/05/21 09:20 Active 10 ml FLUSH ASDIRECTED PRN Peripheral IV Insertion Adult [OM.PC] Stat Oth 02/05/21 09:20 Ordered Medication Orders Sodium Chloride (Sodium Chloride 0.9% 10 Ml Syringe) 10 ml FLUSH ASDIRECTED PRN PRN Reason: Keep Vein Open Last Admin: 02/05/21 09:43 Dose: 10 ml Documented by: FERNANDO Labs: Laboratory Tests 02/05/21 02/05/21 02/05/21 Range/Units 09:32 09:32 09:32 WBC 5.6 (5.0-10.0) 10^3/uL RBC 4.01 L (4.2-5.4) 10^6/uL Hgb 10.9 L (12.0-16.0) g/dL Hct 35.2 L (37.0-47.0) % MCV 87.8 (80-100) fL MCH 27.2 (27.0-34.0) pg MCHC 31.0 L (33.0-35.0) g/dL Plt Count 226 (150-450) 10^3/uL Neut % (Auto) 58.9 (42.2-75.2) % Lymph % (Auto) 29.8 (20.5-50.1) % [place] % (Auto) 7.8 (2-8) % Eos % (Auto) 3.0 (1.0-3.0) % Baso % (Auto) 0.5 (0.0-1.0) % PT 28.0 H D (9.0-12.0) SEC INR 2.8 H (0.9-1.2) APTT 42.0 H (22.0-34.0) SEC Sodium 140 (136-145) mmol/L Potassium 3.8 (3.5-5.1) mmol/L Chloride 105 (98-107) mmol/L Carbon Dioxide 30 (21-32) mmol/L Anion Gap 8.8 (7-13) mEq/L BUN 17 (7-18) mg/dL Creatinine 0.70 (0.55-1.02) mg/dL Est Cr Clr Drug Dosing TNP Estimated GFR (MDRD) > 60 BUN/Creatinine Ratio 24.3 (No establ ref range) Glucose 164 H (70-99) mg/dL Calcium 8.5 (8.5-10.1) mg/dL Total Bilirubin 0.4 (0.2-1.0) mg/dL AST 23 (15-37) U/L ALT 27 (14-59) U/L Alkaline Phosphatase 131 H (46-116) U/L Troponin I High Sens 6 (<=51) pg/mL B-Natriuretic Peptide 98 (0-100) pg/ml Total Protein 8.5 H (6.4-8.2) g/dL Albumin 3.3 L (3.4-5.0) g/dL Globulin 5.2 Albumin/Globulin Ratio 0.63 Amylase 72 (25-115) U/L Lipase 127 (73-393) U/L Digoxin (0.9-2.0) ng/mL 02/05/21 Range/Units 09:32 WBC (5.0-10.0) 10^3/uL RBC (4.2-5.4) 10^6/uL Hgb (12.0-16.0) g/dL Hct (37.0-47.0) % MCV (80-100) fL MCH (27.0-34.0) pg MCHC (33.0-35.0) g/dL Plt Count (150-450) 10^3/uL Neut % (Auto) (42.2-75.2) % Lymph % (Auto) (20.5-50.1) % [place] % (Auto) (2-8) % Eos % (Auto) (1.0-3.0) % Baso % (Auto) (0.0-1.0) % PT (9.0-12.0) SEC INR (0.9-1.2) APTT (22.0-34.0) SEC Sodium (136-145) mmol/L Potassium (3.5-5.1) mmol/L Chloride (98-107) mmol/L Carbon Dioxide (21-32) mmol/L Anion Gap (7-13) mEq/L BUN (7-18) mg/dL Creatinine (0.55-1.02) mg/dL Est Cr Clr Drug Dosing Estimated GFR (MDRD) BUN/Creatinine Ratio (No establ ref range) Glucose (70-99) mg/dL Calcium (8.5-10.1) mg/dL Total Bilirubin (0.2-1.0) mg/dL AST (15-37) U/L ALT (14-59) U/L Alkaline Phosphatase (46-116) U/L Troponin I High Sens (<=51) pg/mL B-Natriuretic Peptide (0-100) pg/ml Total Protein (6.4-8.2) g/dL Albumin (3.4-5.0) g/dL Globulin Albumin/Globulin Ratio Amylase (25-115) U/L Lipase (73-393) U/L Digoxin 0.6 L (0.9-2.0) ng/mL Meds: Medications Generic Name Dose Route Start Last Admin Trade Name Amy PRN Reason Stop Dose Admin Sodium Chloride 10 ml 02/05/21 09:20 02/05/21 09:43 Sodium Chloride 0.9% 10 Ml Syringe FLUSH 10 ml ASDIRECTED PRN Administration Keep Vein Open - Re-Assessments/Exams Free Text/Narrative Re-Assessment/Exam: 02/05/21 10:49 discussed exam, labs, ekg with pt. She remains symptom free since yesterday. SHe would like to be discharged. 02/05/21 10:50 Given the lab values and current findings along with the resolution of symptoms yesterday after prilosec administration the pt was likely suffering from acid reflux. I will advise her to continue her Prilosec and followup with her PCP if her symptoms reoccur Departure - Departure Time of Disposition: 10:50 Disposition: Home, Self-Care 01 Condition: Good Clinical Impression: Acid reflux Qualifiers: Esophagitis presence: without esophagitis Qualified Code(s): K21.9 - Gastro- esophageal reflux disease without esophagitis Instructions: Gastroesophageal Reflux Disease, Adult Forms: ED Department Discharge Additional Instructions: Continue to take Prilosec for your acid reflux. Follow up with your primary care provider if your symptoms return or retunr to the ER Sepsis Event Note (ED) - Focused Exam Vital Signs: Vital Signs Temp Pulse Resp BP Pulse Ox 02/05/21 10:00 97.8 F 60 14 110/59 L 99
[2021-02-05 10:16] VITALS: BP 110/59; PULSE 60
--- NOTE | 2021-02-05 10:23 | CR ---
PROCEDURE INFORMATION: Exam: XR Chest Exam date and time: 02/05/2021 9:58 AM Age: 60 years old Clinical indication: Other: Chest pain TECHNIQUE: Imaging protocol: XR of the chest. Views: 1 view. COMPARISON: CR Chest 1V Frontal 11/01/2019 5:01 PM (report not provided) FINDINGS: Lungs: The pulmonary vasculature is again mildly congested. The lungs are otherwise clear. Pleural spaces: Unremarkable. No pleural effusion. No pneumothorax. Heart/Mediastinum: The cardiomediastinal silhouette is fairly stable in appearance. A cardiac valvular prosthesis is again present. Bones/joints: Median sternotomy wires are again present. IMPRESSION: Mild pulmonary vascular congestion.
== END 2021-02-05 11:19 | disposition home or self-care (01) ==
LOC: DL.ED 08:59
DX: K21.9 Gastro-esophageal reflux disease without esophagitis (principal); I48.91 Unspecified atrial fibrillation; E78.00 Pure hypercholesterolemia, unspecified; I10 Essential (primary) hypertension; E11.40 Type 2 diabetes mellitus with diabetic neuropathy, unspecified; E03.9 Hypothyroidism, unspecified; E66.9 Obesity, unspecified; Z68.26 Body mass index [BMI] 26.0-26.9, adult; Z95.1 Presence of aortocoronary bypass graft; Z79.01 Long term (current) use of anticoagulants; Z91.040 Latex allergy status; Z88.2 Allergy status to sulfonamides; Z91.048 Other nonmedicinal substance allergy status; Z79.82 Long term (current) use of aspirin; Z79.899 Other long term (current) drug therapy
CPT/HCPCS: 36415; 71045; 80053; 80162; 82150; 83690; 83880; 84484; 85025; 85610; 85730; 93005; 99285-25

== ENCOUNTER 2021-10-19 18:58 | Emergency (ER) | payer BC, OTHER ==
[2021-10-19 20:14] LABS: CHLORIDE,CL 107 mmol/L (98-107); SODIUM,NA 141 mmol/L (136-145)
[2021-10-19 20:26] VITALS: BP 105/60; PULSE 60
[2021-10-19] MEDS ORDERED: Iopamidol 755 Mg/ML 100 ML Bottle IVPUSH ONE (21:08)
== END 2021-10-19 23:05 | disposition home or self-care (01) ==
LOC: DL.ED 18:58
DX: R42 Dizziness and giddiness (principal); R06.09 Other forms of dyspnea; D68.9 Coagulation defect, unspecified; I48.91 Unspecified atrial fibrillation; E78.00 Pure hypercholesterolemia, unspecified; I10 Essential (primary) hypertension; K21.9 Gastro-esophageal reflux disease without esophagitis; E11.9 Type 2 diabetes mellitus without complications; E03.9 Hypothyroidism, unspecified; E66.9 Obesity, unspecified; Z68.30 Body mass index [BMI] 30.0-30.9, adult; Z91.040 Latex allergy status; Z88.2 Allergy status to sulfonamides; Z91.048 Other nonmedicinal substance allergy status; Z88.8 Allergy status to other drugs, medicaments and biological substances; Z79.82 Long term (current) use of aspirin; Z79.899 Other long term (current) drug therapy
CPT/HCPCS: 36415; 70450; 71045; 71260; 80053; 82150; 83690; 83735; 83880; 84443; 84484; 85025; 85379; 85610; 93005; 99285; Q9967

== ENCOUNTER → 2022-03-19 | Day surgery (SDC) | payer BC, OTHER ==
[~2022-03-19] MED LIST changes: +Dextrose 5%-0.45% NaCl 1,000 ML IV SCH; +Midazolam 1 MG/ML 2 ML SDV IV ONE; +Midazolam 1 MG/ML 2 ML SDV ONE; -Sodium Chloride 0.9% 10 ML Syringe FLUSH PRN; +fentaNYL 100 MCG/2 ML SDV IV ONE; +fentaNYL 100 MCG/2 ML SDV ONE
[2022-03-19 15:17] VITALS: PULSE 60
[2022-03-19 15:21] VITALS: BP 118/56
== END | disposition home or self-care (01) ==
LOC: DL.ENDO 06:02
PROVIDERS: ATTEND Internal Medicine Gastroenterology
DX: D50.9 Iron deficiency anemia, unspecified (principal); E11.9 Type 2 diabetes mellitus without complications; G47.33 Obstructive sleep apnea (adult) (pediatric); E03.9 Hypothyroidism, unspecified; E66.09 Other obesity due to excess calories; K21.9 Gastro-esophageal reflux disease without esophagitis; E55.9 Vitamin D deficiency, unspecified; I48.91 Unspecified atrial fibrillation; E78.5 Hyperlipidemia, unspecified; Z68.30 Body mass index [BMI] 30.0-30.9, adult; Z88.0 Allergy status to penicillin; Z91.040 Latex allergy status; Z91.048 Other nonmedicinal substance allergy status; Z88.1 Allergy status to other antibiotic agents
CPT/HCPCS: 87077; J2250; J3010; J7042

== ENCOUNTER 2022-04-03 05:27 | Day surgery (SDC) | payer BC, OTHER ==
[2022-04-03] MEDS ORDERED: fentaNYL 100 MCG/2 ML SDV IV ONE (05:28)
[2022-04-03] MEDS ORDERED: Midazolam 1 MG/ML 2 ML SDV IV ONE (05:28)
[2022-04-03] MEDS ORDERED: Sodium Chloride 0.9% 10 ML Syringe FLUSH PRN (06:00)
[2022-04-03] MEDS ORDERED: Midazolam 1 MG/ML 2 ML SDV ONE (06:06)
[2022-04-03] MEDS ORDERED: fentaNYL 100 MCG/2 ML SDV ONE (06:07)
[2022-04-03] MEDS: Dextrose 5%-0.45% NaCl 1,000 ML IV SCH (06:08)
[2022-04-03] MEDS: fentaNYL 100 MCG/2 ML SDV IV ONE ×2 (06:39→06:40)
[2022-04-03] MEDS: Midazolam 1 MG/ML 2 ML SDV IV ONE ×6 (06:41→06:48)
[2022-04-03] MEDS ORDERED: Sodium Chloride 0.9% 10 ML Syringe FLUSH SCH (09:00)
[2022-04-03 09:51] VITALS: PULSE 60
[2022-04-03 09:53] VITALS: BP 110/52
== END 2022-04-03 08:15 | disposition home or self-care (01) ==
LOC: DL.ENDO 05:27
PROVIDERS: ATTEND Internal Medicine Gastroenterology
DX: D50.9 Iron deficiency anemia, unspecified (principal); K21.9 Gastro-esophageal reflux disease without esophagitis; K64.8 Other hemorrhoids; G47.33 Obstructive sleep apnea (adult) (pediatric); I48.91 Unspecified atrial fibrillation; E78.5 Hyperlipidemia, unspecified; E03.9 Hypothyroidism, unspecified; E11.9 Type 2 diabetes mellitus without complications; E55.9 Vitamin D deficiency, unspecified; E66.01 Morbid (severe) obesity due to excess calories; Z68.30 Body mass index [BMI] 30.0-30.9, adult; Z88.2 Allergy status to sulfonamides; Z88.1 Allergy status to other antibiotic agents; Z88.8 Allergy status to other drugs, medicaments and biological substances; Z95.5 Presence of coronary angioplasty implant and graft; Z91.040 Latex allergy status
CPT/HCPCS: 45378; J2250; J3010; J7042

== ENCOUNTER 2022-06-10 12:43 | Emergency (ER) | payer BC, OTHER ==
[2022-06-10 13:45] LABS: ANION GAP 9.7 mEq/L (7-13); CHLORIDE,CL 101 mmol/L (98-107); ESTIMATED GFR 77 mL/min (>=60); SODIUM,NA 138 mmol/L (136-145)
[2022-06-10 13:48] VITALS: BP 111/68; PULSE 56
[2022-06-10] MEDS: Sodium Chloride 0.9% 10 ML Syringe FLUSH PRN (14:44)
[2022-06-10 14:46] LABS: CORONAVIRUS COVID-19 NAA NEGATIVE (NEGATIVE); RESPIRATORY SYNCYTIAL VIR NAA NEGATIVE (NEGATIVE)
== END 2022-06-10 16:36 | disposition home or self-care (01) ==
LOC: DL.ED 12:43
DX: I25.9 Chronic ischemic heart disease, unspecified (principal); I48.91 Unspecified atrial fibrillation; E78.00 Pure hypercholesterolemia, unspecified; I10 Essential (primary) hypertension; E11.9 Type 2 diabetes mellitus without complications; E03.9 Hypothyroidism, unspecified; K21.9 Gastro-esophageal reflux disease without esophagitis; E66.9 Obesity, unspecified; Z68.30 Body mass index [BMI] 30.0-30.9, adult; Z91.048 Other nonmedicinal substance allergy status; Z91.040 Latex allergy status; Z88.2 Allergy status to sulfonamides; Z88.8 Allergy status to other drugs, medicaments and biological substances; Z79.82 Long term (current) use of aspirin; Z79.899 Other long term (current) drug therapy; Z79.01 Long term (current) use of anticoagulants; Z20.822 Contact with and (suspected) exposure to COVID-19
CPT/HCPCS: 0241U; 36415; 71045; 80053; 82150; 83690; 83880; 84484; 85025; 85610; 93005; 99285; J3490

== ENCOUNTER 2022-12-20 18:29 | Emergency (ER) | payer BC, OTHER ==
[2022-12-20] MEDS ORDERED: Sodium Chloride 0.9% 10 ML Syringe FLUSH PRN (18:39)
[2022-12-20 18:53] VITALS: BP 137/60; PULSE 65
[2022-12-20 18:55] LABS: BASOPHILS PERCENT AUTO 0.6 % (0.0-1.0); EOSINOPHILS PERCENT AUTO 4.6 % (1.0-3.0); HEMATOCRIT 34.4 % (37.0-47.0); HEMOGLOBIN 10.8 g/dL (12.0-16.0); LYMPHOCYTES PERCENT AUTO 25.9 % (20.5-50.1); MEAN CORPUSCULAR HEMOGLOBIN 26.3 pg (27.0-34.0); MEAN CORPUSCULAR HGB CONC 31.4 g/dL (33.0-35.0); MEAN CORPUSCULAR VOLUME 83.9 fL (80-100); MONOCYTES PERCENT AUTO 9.6 % (2-8); NEUTROPHILS PERCENT AUTO 59.3 % (42.2-75.2); PLATELET COUNT,PLT 167 10^3/uL (150-450); WHITE BLOOD CELL COUNT,WBC 5.2 10^3/uL (5.0-10.0)
[2022-12-20 19:09] LABS: INR 2.2 (0.9-1.2); PROTHROMBIN TIME 21.6 SEC (9.0-12.0)
[2022-12-20 19:22] LABS: A/G RATIO 0.7; ALBUMIN 3.4 g/dL (3.4-5.0); ANION GAP 11.7 mEq/L (7-13); BILIRUBIN TOTAL 0.5 mg/dL (0.2-1.0); BUN/CREATININE RATIO 25.6 (No establ ref range); C-REACTIVE PROTEIN 0.8 mg/dL (0.0-0.9); CALCIUM 8.7 mg/dL (8.5-10.1); CREATININE 0.9 mg/dL (0.55-1.02); EST CRCL DRUG DOSING (CG) 62.22 mL/min; POTASSIUM,K 3.7 mmol/L (3.5-5.1); PROTEIN TOTAL,TP 8.4 g/dL (6.4-8.2); TSH ULTRASENSITIVE 0.82 uIU/mL (0.36-3.74)
[2022-12-20] MEDS ORDERED: Pantoprazole 40 MG Vial IVPUSH ONE (19:26)
[2022-12-20] MEDS ORDERED: Aspirin 81 MG Tab.Chew PO ONE (19:26)
[2022-12-20] MEDS ORDERED: Aluminum Hydroxide/Magnesium Hydroxide/Simethicone Susp 30 ML Cup PO ONE (19:26)
[2022-12-20] MEDS ORDERED: Lidocaine 2% Viscous Solution 15 ML UD PO ONE (19:26)
[2022-12-20] MEDS ORDERED: Iopamidol 755 Mg/ML 100 ML Bottle IVPUSH ONE (21:32)
== END 2022-12-21 00:57 | disposition home or self-care (01) ==
LOC: DL.ED 18:29
DX: R07.2 Precordial pain (principal); K21.9 Gastro-esophageal reflux disease without esophagitis; I11.0 Hypertensive heart disease with heart failure; I50.9 Heart failure, unspecified; E03.9 Hypothyroidism, unspecified; E11.40 Type 2 diabetes mellitus with diabetic neuropathy, unspecified; I48.91 Unspecified atrial fibrillation; E66.9 Obesity, unspecified; Z68.29 Body mass index [BMI] 29.0-29.9, adult; Z86.16 Personal history of COVID-19; Z91.048 Other nonmedicinal substance allergy status; Z88.8 Allergy status to other drugs, medicaments and biological substances; Z88.2 Allergy status to sulfonamides; Z91.040 Latex allergy status; Z79.01 Long term (current) use of anticoagulants; Z79.82 Long term (current) use of aspirin; Z79.899 Other long term (current) drug therapy
CPT/HCPCS: 36415; 71045; 71275; 80053; 82150; 83690; 83735; 83880; 84443; 84484; 85025; 85379; 85610; 86140; 93005; 96374; 99285; A9270; C9113; Q9967; 93010; 99284; J3490

== ENCOUNTER 2023-08-14 21:56 | Emergency (ER) | payer BC, OTHER ==
[2023-08-14 23:57] VITALS: BP 105/69; PULSE 62
[2023-08-15 00:12] LABS: BASOPHILS PERCENT AUTO 0.2 % (0.0-1.0); EOSINOPHILS PERCENT AUTO 1.1 % (1.0-3.0); HEMATOCRIT 24.2 % (37.0-47.0); HEMOGLOBIN 7.6 g/dL (12.0-16.0); LYMPHOCYTES PERCENT AUTO 7.6 % (20.5-50.1); MEAN CORPUSCULAR HEMOGLOBIN 27.9 pg (27.0-34.0); MEAN CORPUSCULAR HGB CONC 31.4 g/dL (33.0-35.0); MONOCYTES PERCENT AUTO 6.5 % (2-8); NEUTROPHILS PERCENT AUTO 84.6 % (42.2-75.2); PLATELET COUNT,PLT 151 10^3/uL (150-450); RED BLOOD CELL COUNT 2.72 10^6/uL (4.2-5.4); WHITE BLOOD CELL COUNT,WBC 10.4 10^3/uL (5.0-10.0)
[2023-08-15] MEDS: Sodium Chloride 0.9% 10 ML Syringe FLUSH PRN (00:12)
[2023-08-15 00:39] LABS: ALANINE AMINOTRANSFERASE,ALT 30 U/L (14-59); ALBUMIN 2.6 g/dL (3.4-5.0); ALKALINE PHOSPHATASE 175 U/L (46-116); AMYLASE 126 U/L (25-115); ANION GAP 13.8 mEq/L (7-13); ASPARTATE AMNIOTRANSFERASE,AST 62 U/L (15-37); BILIRUBIN TOTAL 0.9 mg/dL (0.2-1.0); BLOOD UREA NITROGEN,BUN 35 mg/dL (7-18); BUN/CREATININE RATIO 34.7 (No establ ref range); CALCIUM 7.6 mg/dL (8.5-10.1); CARBON DIOXIDE,CO2 24 mmol/L (21-32); CHLORIDE,CL 105 mmol/L (98-107); CREATININE 1.01 mg/dL (0.55-1.02); EST CRCL DRUG DOSING (CG) 54.72 mL/min; GLUCOSE RANDOM 229 mg/dL (70-99); POTASSIUM,K 4.8 mmol/L (3.5-5.1); PROTEIN TOTAL,TP 6.5 g/dL (6.4-8.2); SODIUM,NA 138 mmol/L (136-145)
[2023-08-15 00:40] LABS: A/G RATIO 0.67; ESTIMATED GFR 62 mL/min (>=60)
[2023-08-15 00:41] LABS: LIPASE > 250 U/L (16-77)
[2023-08-15 00:42] LABS: INR 2.5 (0.9-1.2); PROTHROMBIN TIME 24.8 SEC (9.0-12.0); PTT,PARTIAL THROMBOPLSTIN TIME 38.9 SEC (22.0-34.0)
[2023-08-15] MEDS: Baclofen 10 MG Tab PO ONE ×2 (01:30)
== END 2023-08-15 01:35 | disposition home or self-care (01) ==
LOC: DL.ED 21:56
DX: M54.6 Pain in thoracic spine (principal); I11.0 Hypertensive heart disease with heart failure; I50.9 Heart failure, unspecified; E78.00 Pure hypercholesterolemia, unspecified; E11.9 Type 2 diabetes mellitus without complications; E66.9 Obesity, unspecified; E03.9 Hypothyroidism, unspecified; Z86.16 Personal history of COVID-19; Z95.0 Presence of cardiac pacemaker; Z79.899 Other long term (current) drug therapy; Z79.01 Long term (current) use of anticoagulants; Z79.82 Long term (current) use of aspirin; Z91.048 Other nonmedicinal substance allergy status; Z91.040 Latex allergy status; Z88.2 Allergy status to sulfonamides; Z88.8 Allergy status to other drugs, medicaments and biological substances; Z68.32 Body mass index [BMI] 32.0-32.9, adult
CPT/HCPCS: 36415; 71046; 80053; 82150; 83690; 84484; 85025; 85610; 85730; 93005; 93010; 99284; A9270-GY; J3490

== ENCOUNTER 2023-08-16 14:25 | Emergency (ER) | payer BC, OTHER ==
[2023-08-16 14:51] LABS: BASOPHILS PERCENT AUTO 0.2 % (0.0-1.0); EOSINOPHILS PERCENT AUTO 1.5 % (1.0-3.0); HEMATOCRIT 22.4 % (37.0-47.0); LYMPHOCYTES PERCENT AUTO 13.9 % (20.5-50.1); MEAN CORPUSCULAR HGB CONC 31.3 g/dL (33.0-35.0); MEAN CORPUSCULAR VOLUME 89.6 fL (80-100); MONOCYTES PERCENT AUTO 7.6 % (2-8); NEUTROPHILS PERCENT AUTO 76.8 % (42.2-75.2); PLATELET COUNT,PLT 215 10^3/uL (150-450)
[2023-08-16 15:10] LABS: ALBUMIN 2.8 g/dL (3.4-5.0); ANION GAP 13.8 mEq/L (7-13); BILIRUBIN TOTAL 0.3 mg/dL (0.2-1.0); BUN/CREATININE RATIO 22.2 (No establ ref range); CALCIUM 7.8 mg/dL (8.5-10.1); CREATININE 0.99 mg/dL (0.55-1.02); EST CRCL DRUG DOSING (CG) 55.83 mL/min; POTASSIUM,K 3.8 mmol/L (3.5-5.1); PROTEIN TOTAL,TP 7.2 g/dL (6.4-8.2)
[2023-08-16 15:13] LABS: A/G RATIO 0.64
[2023-08-16 15:15] LABS: PROTHROMBIN TIME 52.7 SEC (9.0-12.0)
[2023-08-16 15:20] LABS: INR 5.7 (0.9-1.2)
[2023-08-16] MEDS ORDERED: Sodium Chloride 0.9% 250 ML IV SCH (15:45)
[2023-08-16] MEDS: Ondansetron 4 MG/2 ML SDV IVPUSH ONE ×2 (16:09→20:49)
[2023-08-16] MEDS: Morphine 4 MG/ML Syringe IVPUSH ONE (16:09)
[2023-08-16] MEDS: Iopamidol 755 Mg/ML 100 ML Bottle IVPUSH ONE (16:36)
[2023-08-16] MEDS ORDERED: Sodium Polystyrene Sulfonate 15 GM/60 ML Susp 60 ML Bot PO ONE (18:47)
[2023-08-16] MEDS: Phytonadione 5 MG Tab PO ONE (18:48)
[2023-08-16 19:02] VITALS: PULSE 60
[2023-08-16] MEDS: Factor IX Complex Human 500 UNIT VIAL IVPUSH ONE (19:39)
[2023-08-16] MEDS: HYDROmorphone 0.5 MG/0.5 ML Syringe IVPUSH ONE (19:53)
[2023-08-16 21:07] VITALS: BP 115/70
== END 2023-08-16 20:59 ==
LOC: DL.ED 14:25
DX: K92.2 Gastrointestinal hemorrhage, unspecified (principal); R79.1 Abnormal coagulation profile; I48.91 Unspecified atrial fibrillation; I11.0 Hypertensive heart disease with heart failure; I50.9 Heart failure, unspecified; E11.9 Type 2 diabetes mellitus without complications; E03.9 Hypothyroidism, unspecified; E66.9 Obesity, unspecified; Z91.018 Allergy to other foods; Z88.8 Allergy status to other drugs, medicaments and biological substances; Z91.040 Latex allergy status; Z88.2 Allergy status to sulfonamides; Z79.82 Long term (current) use of aspirin; Z79.01 Long term (current) use of anticoagulants; Z86.16 Personal history of COVID-19; Z68.31 Body mass index [BMI] 31.0-31.9, adult
CPT/HCPCS: 36415; 36430; 74174; 80053; 82272; 83690; 85018; 85025; 85610; 86850; 86900; 86901; 86920; 86922; 96374; 96375; 96376; 99285; A9270; J1170; J2270; J2405; J7168; P9016; Q9967

== ENCOUNTER 2023-11-16 22:05 | Emergency (ER) | payer BC, OTHER ==
[2023-11-16] MEDS: Ketorolac 30 MG/ML SDV IVPUSH ONE (23:06)
[2023-11-16] MEDS: Cyclobenzaprine 10 MG Tab PO ONE (23:06)
[2023-11-16] MEDS: Take Home: Cyclobenzaprine 10 MG Tab, 4 Tab Pack PO ONE (23:15)
[2023-11-16 23:44] VITALS: BP 127/89; PULSE 77
== END 2023-11-16 23:45 | disposition home or self-care (01) ==
LOC: DL.ED 22:05
DX: S76.211A Strain of adductor muscle, fascia and tendon of right thigh, initial encounter (principal); I11.0 Hypertensive heart disease with heart failure; I50.9 Heart failure, unspecified; I48.91 Unspecified atrial fibrillation; E78.00 Pure hypercholesterolemia, unspecified; E11.9 Type 2 diabetes mellitus without complications; E03.9 Hypothyroidism, unspecified; Z91.048 Other nonmedicinal substance allergy status; Z91.040 Latex allergy status; Z88.2 Allergy status to sulfonamides; Z88.8 Allergy status to other drugs, medicaments and biological substances; Z79.82 Long term (current) use of aspirin; Z79.890 Hormone replacement therapy; Z79.01 Long term (current) use of anticoagulants; Z79.899 Other long term (current) drug therapy; Z86.16 Personal history of COVID-19; X50.1XXA Overexertion from prolonged static or awkward postures, initial encounter; Y93.89 Activity, other specified
CPT/HCPCS: 96374; 99283; A9270; J1885

== ENCOUNTER 2024-01-26 17:23 | Emergency (ER) | payer BC, OTHER ==
[2024-01-26 18:33] LABS: BASOPHILS PERCENT AUTO 0.5 % (0.0-1.0); EOSINOPHILS PERCENT AUTO 2.1 % (1.0-3.0); HEMATOCRIT 32.4 % (37.0-47.0); HEMOGLOBIN 10.1 g/dL (12.0-16.0); LYMPHOCYTES PERCENT AUTO 24.4 % (20.5-50.1); MEAN CORPUSCULAR HEMOGLOBIN 26.9 pg (27.0-34.0); MEAN CORPUSCULAR HGB CONC 31.2 g/dL (33.0-35.0); MEAN CORPUSCULAR VOLUME 86.4 fL (80-100); MONOCYTES PERCENT AUTO 11.1 % (2-8); NEUTROPHILS PERCENT AUTO 61.9 % (42.2-75.2); PLATELET COUNT,PLT 185 10^3/uL (150-450); RED BLOOD CELL COUNT 3.75 10^6/uL (4.2-5.4); WHITE BLOOD CELL COUNT,WBC 3.8 10^3/uL (5.0-10.0)
[2024-01-26 18:55] LABS: A/G RATIO 0.7; ALBUMIN 3.7 g/dL (3.4-5.0); ANION GAP 9.8 mEq/L (7-13); BILIRUBIN DIRECT 0.3 mg/dL (0.0-0.2); BILIRUBIN INDIRECT 0.4; BILIRUBIN TOTAL 0.7 mg/dL (0.2-1.0); CALCIUM 8.6 mg/dL (8.5-10.1); CREATININE 0.96 mg/dL (0.55-1.02); EST CRCL DRUG DOSING (CG) 57.57 mL/min; POTASSIUM,K 3.8 mmol/L (3.5-5.1); PROTEIN TOTAL,TP 8.8 g/dL (6.4-8.2)
[2024-01-26 18:58] LABS: INR 2.6 (0.9-1.2); PROTHROMBIN TIME 25.7 SEC (9.0-12.0)
[2024-01-26 19:26] LABS: MAGNESIUM 2.1 mg/dL (1.8-2.4)
[2024-01-26] MEDS: Iopamidol 612 MG/ML 100 ML Bottle IVPUSH ONE (19:43)
[2024-01-26 20:05] LABS: APPEARANCE,URINE CLEAR (CLEAR); BILIRUBIN,URINE NEGATIVE (NEGATIVE); COLOR,URINE YELLOW (YELLOW); GLUCOSE,URINE NEGATIVE (NEGATIVE); KETONES,URINE NEGATIVE (NEGATIVE); LEUKOCYTE ESTERASE,URINE NEGATIVE (NEGATIVE); NITRITE,URINE NEGATIVE (NEGATIVE); OCCULT BLOOD,URINE NEGATIVE (NEGATIVE); PH,URINE 5.5 (5.0-9.0); PROTEIN,URINE NEGATIVE (NEGATIVE); UROBILINOGEN,URINE 0.2 mg/dL (0.2-1.0)
[2024-01-26] MEDS: Magnesium Citrate Solution 296 ML Bottle PO ONE (21:13)
[2024-01-26 21:23] VITALS: BP 139/89; PULSE 61
== END 2024-01-26 21:31 | disposition home or self-care (01) ==
LOC: DL.ED 17:23
DX: K59.00 Constipation, unspecified (principal); I11.0 Hypertensive heart disease with heart failure; I50.9 Heart failure, unspecified; I48.91 Unspecified atrial fibrillation; M19.90 Unspecified osteoarthritis, unspecified site; Z95.0 Presence of cardiac pacemaker; E11.40 Type 2 diabetes mellitus with diabetic neuropathy, unspecified; E03.9 Hypothyroidism, unspecified; E66.9 Obesity, unspecified; Z86.16 Personal history of COVID-19; Z68.32 Body mass index [BMI] 32.0-32.9, adult; Z79.82 Long term (current) use of aspirin; Z79.01 Long term (current) use of anticoagulants; Z79.899 Other long term (current) drug therapy; Z91.048 Other nonmedicinal substance allergy status; Z88.8 Allergy status to other drugs, medicaments and biological substances; Z91.040 Latex allergy status; Z88.2 Allergy status to sulfonamides
CPT/HCPCS: 36415; 74177; 80048; 80076; 81003; 83690; 83735; 83880; 84484; 85025; 85610; 99284; A9270; Q9967